=== PATIENT | male | born 1975 | race Two or more races ===

== ENCOUNTER → 2020-06-28 09:54 | Outpatient (BNVA) | payer OTHER, SELFPAY | PROVIDERS: PCP Internal Medicine; Visit Provider Internal Medicine Endocrinology, Diabetes & Metabolism | DX: E11.9 Type 2 diabetes mellitus without complications (principal); E78.00 Pure hypercholesterolemia, unspecified; E53.8 Deficiency of other specified B group vitamins; E55.9 Vitamin D deficiency, unspecified; Z87.891 Personal history of nicotine dependence; E66.9 Obesity, unspecified; Z79.4 Long term (current) use of insulin; Z71.3 Dietary counseling and surveillance | CPT/HCPCS: 82947; 99212 ==

== ENCOUNTER 2020-06-28 10:42 | Outpatient (REF) | payer OTHER, SELFPAY ==
[2020-06-28 14:25] LABS: Cholesterol 174 mg/dL; HDL Cholesterol 39 mg/dL; LDL Cholesterol Calculated 109 mg/dl; Triglycerides 131 mg/dL
[2020-06-28 14:48] LABS: Vitamin D 25-OH Total 29.4 ng/mL (>30)
[2020-06-29 12:01] LABS: LDL Cholesterol Direct 121 mg/dL (<100)
== END 2020-06-28 10:43 | disposition home or self-care (01) ==
LOC: HO.10HDL 10:42
PROVIDERS: Visit Provider Internal Medicine Endocrinology, Diabetes & Metabolism
DX: E11.9 Type 2 diabetes mellitus without complications (principal)
CPT/HCPCS: 80061; 82306; 83721

== ENCOUNTER → 2021-01-22 10:58 | Outpatient (BNVA) | payer OTHER, SELFPAY | PROVIDERS: PCP Internal Medicine; Visit Provider Internal Medicine Endocrinology, Diabetes & Metabolism | DX: E11.9 Type 2 diabetes mellitus without complications (principal); E78.00 Pure hypercholesterolemia, unspecified; E53.8 Deficiency of other specified B group vitamins; E55.9 Vitamin D deficiency, unspecified; E66.9 Obesity, unspecified | CPT/HCPCS: 82947; 99212 ==

== ENCOUNTER 2021-03-27 08:24 | Outpatient (REF) | payer OTHER, SELFPAY ==
[2021-03-27 09:41] LABS: MANUAL DIFF FLAG NO
[2021-03-27 09:49] LABS: Basophils Absolute Auto 0.1 X10*3/uL (0.0-0.2); Basophils Percent Auto 0.7 % (0-2); Eosinophils Absolute Auto 0.3 X10*3/uL (0.0-0.4); Eosinophils Percent Auto 3.8 % (0-4); Hematocrit 45.7 % (42-52); Hemoglobin 15.7 g/dl (14.0-18.0); Imm Gran Abs Auto 0.02 X10*3/uL (0.00-0.03); Imm Gran Pct Auto 0.3 % (0.0-0.4); Lymphocytes Absolute Auto 2.5 X10*3/uL (1.2-4.9); Lymphocytes Percent Auto 34.7 % (20-40); Mean Corpuscular HGB Conc 34.4 g/dl (31.0-36.0); Mean Corpuscular Hemoglobin 31.8 pg (27.0-33.0); Mean Corpuscular Volume 92.7 fL (80-98); Mean Platelet Volume 9.8 fL (9.4-12.4); Monocytes Absolute Auto 0.6 X10*3/uL (0.1-1.2); Monocytes Percent Auto 8.2 % (2-11); Neutrophils Absolute Auto 3.8 X10*3/uL (2.0-8.3); Neutrophils Percent Auto 52.3 % (45-73); Platelet Count 212 X10*3/uL (160-400); Red Blood Count 4.93 X10*6/uL (4.60-5.80); Red Cell Distribution Width 12.1 % (11.0-16.0); White Blood Count 7.2 X10*3/uL (4.8-10.8)
[2021-03-27 10:26] LABS: Creatinine Urine 173.73 mg/dL; Microalbum/Creatinine Ratio Ur 2.8 ug/mg cr
[2021-03-27 10:27] LABS: Alanine Aminotransferase 21 U/L (0-40); Albumin Level 4.3 g/dL (3.5-5.0); Alkaline Phosphatase 52 U/L (39-117); Anion Gap 14 (12-20); Aspartate Amino Transferase 18 U/L (5-37); Bilirubin Total 0.4 mg/dL (0.0-1.0); Blood Urea Nitrogen 16 mg/dL (9-16); Calcium 9.4 mg/dL (8.4-10.2); Carbon Dioxide 28 mmol/L (22-29); Chloride 107 mmol/L (96-108); Cholesterol 204 mg/dL; Estimated Glomerular Filt Rate > 60; Glucose Fasting 108 mg/dL (60-99); HDL Cholesterol 42 mg/dL; LDL Cholesterol Calculated 142 mg/dl; Potassium 4.7 mmol/L (3.3-5.1); Sodium 144 mmol/L (135-145); Total Protein 6.6 g/dL (6.5-8.0); Triglycerides 103 mg/dL
[2021-03-27 10:58] LABS: Folate 15.8 ng/mL (> or = 4.0); Vitamin B12 476 pg/mL (200-900)
[2021-04-01 13:06] LABS: Vitamin D 25-OH, D2 <4 ng/mL; Vitamin D 25-OH, D3 27 ng/mL; Vitamin D 25-OH, Total 27 ng/mL (30-100)
== END 2021-03-27 08:25 | disposition home or self-care (01) ==
LOC: HO.LAB 08:24
PROVIDERS: PCP Internal Medicine; Visit Provider Internal Medicine
DX: E55.9 Vitamin D deficiency, unspecified (principal); E11.9 Type 2 diabetes mellitus without complications; E53.8 Deficiency of other specified B group vitamins; E78.00 Pure hypercholesterolemia, unspecified
CPT/HCPCS: 36415; 80053; 80061; 82043; 82306; 82607; 82746; 85025

== ENCOUNTER 2021-05-25 09:53 | Outpatient (REF) | payer OTHER, SELFPAY ==
--- NOTE | ~2021-05-25 | XR_ITS ---
EXAMINATION: XR LUMBOSACRAL SPINE CLINICAL INFORMATION: Lower back pain COMPARISON: 08/27/2014 TECHNIQUE: Three views of the lumbosacral spine. FINDINGS: No fracture or subluxation. Vertebral body height and alignment maintained. Disc spaces are maintained. Small multilevel endplate osteophytes which are greatest at L2-L3. The sacroiliac joints are symmetric. The sacrum appears intact. Nonobstructive bowel gas pattern. XR/XR lumbar spine 2-3V IMPRESSION: Mild multilevel degenerative changes of the lumbar spine which have progressed from 2014.
== END 2021-05-25 09:54 | disposition home or self-care (01) ==
LOC: HO.XRAY 09:53
PROVIDERS: PCP Internal Medicine; Visit Provider Physician Assistant
DX: M54.50 Low back pain, unspecified (principal)
CPT/HCPCS: 72100

== ENCOUNTER 2021-11-09 08:22 | Outpatient (REF) | payer OTHER, SELFPAY ==
[2021-11-09 09:32] LABS: Alanine Aminotransferase 38 U/L (0-40); Albumin Level 4.4 g/dL (3.5-5.0); Alkaline Phosphatase 57 U/L (39-117); Anion Gap 12 (12-20); Aspartate Amino Transferase 25 U/L (5-37); Bilirubin Total 0.6 mg/dL (0.0-1.0); Blood Urea Nitrogen 13 mg/dL (9-16); Calcium 9.4 mg/dL (8.4-10.2); Carbon Dioxide 28 mmol/L (22-29); Chloride 102 mmol/L (96-108); Cholesterol 196 mg/dL; Estimated Glomerular Filt Rate > 60; Glucose Fasting 124 mg/dL (60-99); HDL Cholesterol 34 mg/dL; LDL Cholesterol Calculated 136 mg/dl; Potassium 4.4 mmol/L (3.3-5.1); Sodium 138 mmol/L (135-145); Total Protein 7.6 g/dL (6.5-8.0); Triglycerides 131 mg/dL
[2021-11-09 09:35] LABS: Creatinine Urine 188.18 mg/dL; Microalbum/Creatinine Ratio Ur 3.1 ug/mg cr
[2021-11-09 10:15] LABS: Vitamin B12 386 pg/mL (200-900)
[2021-11-15 12:18] LABS: Vitamin D 25-OH, D2 <4 ng/mL; Vitamin D 25-OH, D3 25 ng/mL; Vitamin D 25-OH, Total 25 ng/mL (30-100)
== END 2021-11-09 08:23 | disposition home or self-care (01) ==
LOC: HO.LAB 08:22
PROVIDERS: PCP Internal Medicine; Visit Provider Internal Medicine
DX: E11.9 Type 2 diabetes mellitus without complications (principal); E55.9 Vitamin D deficiency, unspecified; E53.8 Deficiency of other specified B group vitamins; E78.5 Hyperlipidemia, unspecified
CPT/HCPCS: 36415; 80053; 80061; 82043; 82306; 82607

== ENCOUNTER 2022-05-01 14:00 | Outpatient (RCR) | payer OTHER, SELFPAY ==
--- NOTE | 2022-06-11 09:02 | MHC.PT.DC ---
[facility] [place] Office [place] Office [place] Office [address] Angeline Cuevas [address] [phone] F: [phone] F: [phone] F: [phone] F: [phone] Physical Therapy Discharge Report Diagnosis: SCIATICA, RIGHT (KP) Date of Surgery: Date of Evaluation: 04/03/22 Date of Discharge: 06/11/22 Treatments to Date: 5 Cancellations to Date: 2 No Shows to Date: 1 Discharge Status: Discharge Summary: Persian cancelled/no showed for last three scheduled visits and is DCed per department policy. Electronically signed by: Marissa Pinedo PT, DPT Please sign and return to therapist. Thank you for your referral.
== END 2022-06-11 09:00 | disposition home or self-care (01) ==
LOC: HO.PT 14:00
PROVIDERS: PCP Internal Medicine; Visit Provider Internal Medicine
DX: M54.31 Sciatica, right side (principal)
CPT/HCPCS: 97110; 97140; 97161; 97530; 97535

== ENCOUNTER 2022-10-24 08:44 | Outpatient (REF) | payer OTHER, SELFPAY ==
[2022-10-24 09:32] LABS: Estimated Average Glucose 137 mg/dL; Hemoglobin A1c % 6.4 %
[2022-10-24 09:42] LABS: Alanine Aminotransferase 17 U/L (0-40); Albumin Level 4.2 g/dL (3.5-5.0); Alkaline Phosphatase 56 U/L (39-117); Anion Gap 11 (12-20); Aspartate Amino Transferase 18 U/L (5-37); Bilirubin Total 0.3 mg/dL (0.0-1.0); Blood Urea Nitrogen 15 mg/dL (9-16); Calcium 8.9 mg/dL (8.4-10.2); Carbon Dioxide 28 mmol/L (22-29); Chloride 104 mmol/L (96-108); Cholesterol 170 mg/dL; Estimated Glomerular Filt Rate > 60; Glucose Fasting 126 mg/dL (60-99); HDL Cholesterol 36 mg/dL; LDL Cholesterol Calculated 116 mg/dl; Potassium 4.2 mmol/L (3.3-5.1); Sodium 139 mmol/L (135-145); Total Protein 7.1 g/dL (6.5-8.0); Triglycerides 94 mg/dL
[2022-10-24 10:15] LABS: Folate 7.9 ng/mL (> or = 4.0); Vitamin B12 320 pg/mL (200-900); Vitamin D 25-OH Total 26.8 ng/mL (>30)
[2022-10-24 11:32] LABS: Creatinine Urine 111.21 mg/dL; Microalbumin Urine < 5.0 mg/L
== END 2022-10-24 08:45 | disposition home or self-care (01) ==
LOC: HO.LAB 08:44
PROVIDERS: Visit Provider Internal Medicine
DX: Z00.00 Encounter for general adult medical examination without abnormal findings (principal); E11.40 Type 2 diabetes mellitus with diabetic neuropathy, unspecified; E78.5 Hyperlipidemia, unspecified; E11.9 Type 2 diabetes mellitus without complications; E53.8 Deficiency of other specified B group vitamins; E55.9 Vitamin D deficiency, unspecified
CPT/HCPCS: 36415; 80053; 80061; 82043; 82306; 82607; 82746; 83036

== ENCOUNTER → 2022-11-05 13:25 | Outpatient (REF) | payer OTHER, SELFPAY ==
--- NOTE | 2022-11-05 13:28 | HM_ITS ---
* Total monitoring time 2 days. * Underlying rhythm is sinus. Average ventricular rate 92/Min. Range 69 to 150/Min. * Frequent PACs with a burden of 1.5%. Very brief runs noted. * Rare PVCs with minimal burden * No significant pauses or AV blocks. * Patient markers used 3 times, in association sinus rhythm, PACs, PVC. * Diary symptoms include palpitations, skipping, chest discomfort, pain and correlates with patient markers above. MTDD
== END ==
LOC: HO.CARD 13:25
PROVIDERS: PCP Internal Medicine; Visit Provider Internal Medicine
DX: R00.2 Palpitations (principal)
CPT/HCPCS: 93225

== ENCOUNTER → 2022-12-12 09:30 | Outpatient (BNVA) | payer OTHER, SELFPAY | PROVIDERS: PCP Internal Medicine; Visit Provider Nurse Practitioner Family | DX: Z12.11 Encounter for screening for malignant neoplasm of colon (principal); E11.9 Type 2 diabetes mellitus without complications; E66.9 Obesity, unspecified; E78.00 Pure hypercholesterolemia, unspecified; E55.9 Vitamin D deficiency, unspecified; Z68.35 Body mass index [BMI] 35.0-35.9, adult | CPT/HCPCS: 99202 ==

== ENCOUNTER 2023-11-28 11:57 | Outpatient (AMB) | payer OTHER, SELFPAY ==
[2023-11-28 12:00] VITALS: BP 108/72; PULSE 109; TEMP 36.8; O2SAT 99; BMI 34.4
--- NOTE | 2023-11-28 12:00 | MHC.OFFWIV ---
Intake Vital Signs 11/28/23 12:00 Height 5 ft 11 in Weight 246 lb 8 oz BMI 34.4 BP 108/72 Blood Pressure Location Lt brachial Position Sitting Pulse 109 H Pulse Source Pulse Oximeter Temp 98.3 F Temp Source Oral Pulse Oximetry (%) 99 Oxygen Delivery Method Room Air Intake Visit Reasons: EP Rash Intake Note: Pt presents to the office today for c/o a rash on his feet and lower abdomen that started last week. Pt states it is a little painful and itchy. Patient Tobacco Use Status: Never used Tobacco Allergies No Known Allergies [No Known Allergies*] Allergy (Verified 11/28/23 12:03) HPI HPI Comments History of Present Illness Details 48 y/o male patient who presents to walk in clinic with c/o Rash on his bilateral dorsal feet and under abdominal skin folds. Reports that rash started 2 weeks ago. Describes it as very itchy with mild pain. Denies any changes to his diet, cosmetic products, detergent of soap. [facility] Medical History B12 deficiency Depression with anxiety Diabetes mellitus Hypovitaminosis D Obesity (BMI 30-39.9) Physical exam Pure hypercholesterolemia Surgical History No pertinent past surgical history Family History Father Alzheimers disease Mental health disorder Mother Diabetes Social History Housing: Apartment Alcohol intake: current Alcohol intake frequency: holidays/special occasions only Alcohol type: beer Patient Tobacco Use Status: Never used Tobacco Tobacco use type: Cigarette e-Cigarette/Vaping Use: Never Used Second Hand Smoke Exposure: No service: No Current occupational status: disabled Review of Systems Const All systems reviewed & are unremarkable except as noted in HPI and below Physical Exam Vital Signs: Last Vital Signs Temp 98.3 F 11/28/23 12:00 Pulse 109 H 11/28/23 12:00 BP 108/72 11/28/23 12:00 Pulse Ox 99 11/28/23 12:00 Oxygen Delivery Method Room Air 11/28/23 12:00 BMI result Body Mass Index 34.4 Const General: comfortable and no acute distress Orientation/consciousness: patient oriented x3 Limitations: language barrier GI Abdomen image: 1. Patches of red, scaly, moist skin on feet and the abdominal skin folds. Skin Other: Patches of red, scaly, moist skin on feet and the abdominal skin folds. General skin exam: dry skin and erythema Rashes: rashes noted Neuro General: patient oriented x3, gait normal and moves all extremities Extrem Ankle/foot/toe images: 1. Patches of red, scaly, moist skin on feet and the abdominal skin folds. 2. Patches of red, scaly, moist skin on feet and the abdominal skin folds. Psych Speech and movement: Normal speech and movement present Assessment & Plan Assessment & Plan (1) Rash and nonspecific skin eruption: Code(s): R21 - Rash and other nonspecific skin eruption Plan: - Moisturize skin -Use the medication as directed - RTC if not better. Medications: New clotrimazole-betamethasone 1-0.05 % 1 appl topical BID 2 weeks 45 grams 0RF Rash R21 - Rash and other nonspecific skin eruption prednisone 50 mg PO DAILY 5 days 5 tabs 0RF Itching R21 - Rash and other nonspecific skin eruption Coding Level of Care Code Est Pt Level 3 (81330) Diagnoses Rash and nonspecific skin eruption R21 Time Spent (min) 15
== END 2023-11-28 12:28 | disposition home or self-care (01) ==
PROVIDERS: PCP Internal Medicine; Visit Provider Nurse Practitioner Family
DX: R21 Rash and other nonspecific skin eruption (principal)
CPT/HCPCS: 99213

== ENCOUNTER 2024-03-02 15:27 | Outpatient (AMB) | payer OTHER, SELFPAY ==
--- NOTE | 2024-03-02 15:33 | MHC.OFFWIV ---
Intake Vital Signs 03/02/24 15:35 Height 5 ft 11 in Weight 242 lb BMI 33.7 BP 112/78 Blood Pressure Location Lt brachial Position Sitting Pulse 99 Pulse Source Pulse Oximeter Temp 98.7 F Temp Source Oral Pulse Oximetry (%) 98 Oxygen Delivery Method Room Air Intake Visit Reasons: EP RT eye concern Intake Note: pt c/o RT eye foreign object. 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 1 week ago Patient Tobacco Use Status: Never used Tobacco Allergies No Known Allergies [No Known Allergies*] Allergy (Verified 03/02/24 15:34) Do you need a note to return to daycare/school/sports/work: No HPI EP RT eye concern HPI Details This note is constructed using voice recognition software. While every effort has been made to ensure accuracy, pig machine operator errors may have been included. The patient is a 49 year old male who presents to the clinic today with right-sided eye pain for one-week after having foreign body in his eye at work. He notes that he is having blurred vision, and pain on movement. He has not had this evaluated previously.. [facility] Medical History B12 deficiency Depression with anxiety Diabetes mellitus Hypovitaminosis D Obesity (BMI 30-39.9) Physical exam Pure hypercholesterolemia Surgical History No pertinent past surgical history Family History Father Alzheimers disease Mental health disorder Mother Diabetes Social History Housing: Apartment Alcohol intake: current Alcohol intake frequency: holidays/special occasions only Alcohol type: beer Patient Tobacco Use Status: Never used Tobacco Tobacco use type: Cigarette e-Cigarette/Vaping Use: Never Used Second Hand Smoke Exposure: No service: No Current occupational status: disabled Review of Systems Const All systems reviewed & are unremarkable except as noted in HPI and below Physical Exam Vital Signs: Last Vital Signs Temp 98.7 F 03/02/24 15:35 Pulse 99 03/02/24 15:35 BP 112/78 03/02/24 15:35 Pulse Ox 98 03/02/24 15:35 Oxygen Delivery Method Room Air 03/02/24 15:35 BMI result Body Mass Index 33.7 Const General: cooperative, healthy appearing, comfortable, no acute distress and alert Orientation/consciousness: patient oriented x3 Limitations: no limitations HEENT Head: Yes normal to inspection and Yes normocephalic Ears: hearing grossly normal bilaterally General nose exam: Normal external nose present Face and sinus: Yes normal facial exam and Yes sinuses nontender Mouth: Normal oral and palatal mucosa present and tongue normal Teeth and gingiva: dentition normal Throat: Yes posterior oropharynx normal Eyes Other: Erythema present to the right eye, painful extraocular movement. No obvious foreign body on exam. Neuro General: patient oriented x3 Psych Appearance: grossly normal Mental Status: mental status grossly normal Speech and movement: Normal speech and movement present Affect: normal affect Assessment & Plan Assessment & Plan (1) Pain, eye, right: Code(s): H57.11 - Ocular pain, right eye Plan: Given the foreign body was entered into I over one-week ago, I advised patient to be seen by Ophthalmology, especially in setting of blurred vision. He has agreed to be seen by Ophthalmology, and I have provided him with the phone number and address for Dr. Quezada. I have also sent a message to his primary care provider to facilitate referral if needed. Plan See above for full details and plan. Coding Level of Care Code Est Pt Level 3 (49207) Diagnoses Pain, eye, right H57.11
[2024-03-02 15:35] VITALS: BP 112/78; PULSE 99; TEMP 37.1; O2SAT 98; BMI 33.7
== END 2024-03-02 16:18 | disposition home or self-care (01) ==
PROVIDERS: PCP Internal Medicine; Visit Provider Registered Nurse
DX: H57.11 Ocular pain, right eye (principal)
CPT/HCPCS: 99213

== ENCOUNTER 2024-03-04 16:28 | Outpatient (AMB) | payer OTHER, SELFPAY ==
[2024-03-04 16:32] VITALS: BP 120/80; BMI 34.4
--- NOTE | 2024-03-04 16:32 | A.OFFPC_ITS ---
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 Required: No Accompanied by: Self / Same As Patient Allergies No Known Allergies [No Known Allergies*] Allergy (Verified 03/04/24 16:48) Medication List - Last Reconciled 03/04/24 by Louise Ledesma MD alcohol swabs 1 pad topical .3 times a day 90 days atorvastatin 40 mg PO BEDTIME 90 days blood sugar diagnostic As directed blood sugar diagnostic (FreeStyle Lite Strips) 3 times a day cholecalciferol (vitamin D3) (Vitamin D3) 50 mcg PO DAILY clotrimazole-betamethasone 1-0.05 % 1 appl topical BID 2 weeks cyanocobalamin (vitamin B-12) 100 mcg PO DAILY 90 days dulaglutide (Trulicity) 0.75 mg (0.5 mL) subcut QWEEK 90 days lancets 3 times a day lidocaine 5% 1 appl topical BEDTIME PRN 30 days lorazepam 1 mg PO TID metformin ER 500 mg PO BID paroxetine HCl 20 mg PO QAM quetiapine 100 mg PO BEDTIME Tobacco use date assessed: 03/04/24 Dental Screening Dental Screen Date: 03/04/24 Did you have a dental visit in the last 12 months?: Yes Did you have a dental problem in the last 6 months where you did not have access to dental care?: No Was dental information given to patient?: Patient has dentist HPI HPI Comments History of Present Illness Details This is a 49-year-old male with moderate recurrent major depression and diabetes mellitus type 2 that comes for his physical exam. Depression stable with medications and he follows with Psychiatry. A1c within goal. Last diabetic eye exam was less than a year ago. Has not had a colonoscopy and will be referred. [facility] Medical History Physical exam Obesity (BMI 30-39.9) Hypovitaminosis D B12 deficiency Depression with anxiety Pure hypercholesterolemia Diabetes mellitus Surgical History No pertinent past surgical history Family History Father Alzheimers disease Mental health disorder Mother Diabetes Social History Housing: Apartment Alcohol intake: current Alcohol intake frequency: holidays/special occasions only Alcohol type: beer Patient Tobacco Use Status: Never used Tobacco e-Cigarette/Vaping Use: Never Used Second Hand Smoke Exposure: No service: No Current occupational status: employed Current occupational exposures/hazards: No Cognitive needs: No Hearing needs: No Vision needs: No Questionnaire PHQ-9 Over the last 2 weeks, how often have you been bothered by any of the following problems? 1. Little interest or pleasure in doing things: not at all 2. Feeling down, depressed, or hopeless: several days 3. Trouble falling or staying asleep, or sleeping too much: several days 4. Feeling tired or having little energy: several days 5. Poor appetite or overeating: several days 6. Feeling bad about yourself - or that you are a failure or have let yourself or your family down: several days 7. Trouble concentrating on things, such as reading the newspaper or watching television: not at all 8. Moving or speaking so slowly that other people could have noticed. Or the opposite - being so fidgety or restless that you have been moving around a lot more than usual: not at all 9. Thoughts that you would be better off or of hurting yourself in some way: not at all Total score: 5 Depression Screening Interpretation: Positive Depression Screening Follow-up: Existing condition, In treatment, Community Mental Health Worker F/U and Follow- up Visit Requested Depression Screening Done: Yes 32497 - PHQ-9 Billing: Yes Source: Developed by Drs. Shashank Doe, Yady Paz, Sandeep Cartwright and colleagues, with an educational mary from [employer]. Thrive Questionnaire Date Thrive assessed: 03/04/24 I am a: Patient What is your living situation today?: I have a steady place to live Within the past 12 months, did the food you bought not last and you didn't have the money to get more?: Never true Within the past 12 months, did you worry whether your food would run out before you got money to buy more?: Never true Do you have trouble paying for medicines?: No Do you have trouble getting transportation to medical appointments?: No Do you have trouble paying your heating and electricity bill?: No Do you have trouble taking care of your child, family member or friend?: No Do you have trouble with day-to-day activities such as bathing, preparing meals, shopping, managing finances, etc.?: No Are you currently unemployed and looking for a job?: No Are you interested in more education?: No Please select the resources that you would like help with: None Currently or been in a relationship where the following occur: No concerns reported THRIVE Score: 0 AUDIT C Alcohol Use Questionnaire (AUDIT-C) 1. How often do you have a drink containing alcohol?: Monthly or less 2. How many drinks containing alcohol do you have on a typical day when you are drinking?: 1 or 2 3. How often do you have six or more drinks on one occasion?: Never Total Score: 1 Score Reviewed/Action Taken: No NAEL-7 AMB Questionnaire NAEL-7 Date NAEL - 7 assessed: 03/04/24 Feeling nervous, anxious, or on edge: 1 = Several days Not being able to stop or control worryin = Not at all Worrying too much about different things: 1 = Several days Trouble relaxin = Not at all Being so restless that it is hard to sit still: 0 = Not at all Becoming easily annoyed or irritable: 1 = Several days Feeling afraid as if something awful might happen: 0 = Not at all Total NAEL-7 score (0-4 normal; 5-9 mild; 10-14 moderate; 15-21 severe): 3 Source: Developed by Drs. Shashank Doe, Yady Paz, Sandeep Cartwright and colleagues, with an educational mary from [employer]. NAEL-7 Assessment Billing NAEL-7 Assessment Tool: NAEL-7 Assessment 58388 Review of Systems Const All systems reviewed & are unremarkable except as noted in HPI and below Card Denies chest pain at rest, Denies chest pain with activity, Denies edema, Denies irregular heart rhythm, Denies claudication, Denies dyspnea, Denies dyspnea on exertion, Denies orthopnea, Denies paroxysmal nocturnal dyspnea and Denies slow heart rate Resp Denies cough, Denies dyspnea and Denies dyspnea on exertion GI Denies abdominal pain, Denies change in bowel habits, Denies excessive flatus, Denies nausea and Denies vomiting Denies urinary hesitancy, Denies urinary incontinence and Denies urinary urgency Musc Denies atrophy, Denies deformity and Denies limited range of motion Physical exam (Primary Care) Vital Signs: Last Vital Signs BP 120/80 03/04/24 16:32 BMI result Body Mass Index 34.4 BMI Assessment/Plan discussion: High BMI High, discussed plan: lifestyle, weight reduction, dietary and physical activity Tobacco/Smoking Status: Tobacco use Status Tobacco use date assessed 03/04/24 03/04/24 16:43 Patient Tobacco Use Status Never used Tobacco 03/04/24 16:43 Tobacco use type 03/04/24 16:43 e-Cigarette/Vaping Use Never Used 03/04/24 16:43 PHQ-9: PHQ-9 Score PHQ-9: Total score 5 03/04/24 16:43 Depression Screening Interpretation: Positive Depression Screening Follow-up: Existing condition, In treatment, Community Mental Health Worker F/U and Follow- up Visit Requested Thrive Assessment: Date of Thrive Assessment Date Thrive assessed 03/04/24 03/04/24 16:43 Currently or been in a relationship where the following occur: No concerns reported HENOH Head: Yes normal to inspection, Yes normocephalic and Yes atraumatic Ears: external ears normal Eyes General: appearance normal, both eyes and all related structures Eyelids: Yes eyelids normal Conjunctivae: conjunctivae normal Neck Neck: Yes normal visual inspection and Yes supple Resp Effort & Inspection: normal respiratory effort Auscultation: clear to auscultation bilaterally Cardio Jugular venous distension: no JVD Rate: regular rate Rhythm: regular rhythm Heart sounds: S1 normal heart sound present and S2 normal heart sound present GI Inspection: Yes normal to inspection Palpation (GI): Soft to palpation and nontender Auscultation: normal bowel sounds Skin General skin exam: no rashes or lesions noted Neuro General: no focal motor deficits Extrem General: Yes full ROM Psych Appearance: grossly normal Results AMB Hemoglobin A1c AMB Hemoglobin A1c 5.9 % Last Edit by SEAN Ayala on 03/04/24 16:4 5 Results Reviewed Results Reviewed: Laboratory Last Values Hgb A1c (Clinic) 5.9 % (4.0-6.0) 03/04/24 16:32 Assessment and Plan Assessment & Plan (1) Physical exam: Code(s): Z00.00 - Encounter for general adult medical examination without abnormal findings Plan: Repeat in a year. (2) Moderate recurrent major depression: Code(s): F33.1 - Major depressive disorder, recurrent, moderate Plan: Continue paroxetine. Follow-up with psychiatry. (3) Diabetes mellitus: Code(s): E11.9 - Type 2 diabetes mellitus without complications Qualifiers: Diabetes mellitus type: type 2 Diabetes mellitus jail insulin use: without long term care social worker use Diabetes mellitus complication status: without complication Qualified Code(s): E11.9 - Type 2 diabetes mellitus without complications Plan: Continue metformin. A1c goal is equal or less than 7%. Orders: Orders Comprehensive Kennedy. Panel Fast Today E11.9 - Type 2 diabetes mellitus without complications AMB Hemoglobin A1c Today E11.9 - Type 2 diabetes mellitus without complications Lipid Panel Today E78.5 - Hyperlipidemia, unspecified Microalbumin, Random (w Creat) Today E11.9 - Type 2 diabetes mellitus without complications Vitamin D 25-OH Total Today E55.9 - Vitamin D deficiency, unspecified Vitamin B12 and Folate Today E53.8 - Deficiency of other specified B group vitamins Medications: Refilled blood sugar diagnostic (FreeStyle Lite Strips) 3 times a day 300 ea 2RF E11.9 - Type 2 diabetes mellitus without complications atorvastatin Dose increased to 40 mg 40 mg PO BEDTIME 90 days 90 tabs 1RF E78.00 - Pure hypercholesterolemia, unspecified cyanocobalamin (vitamin B-12) 100 mcg PO DAILY 90 days 90 tabs 1RF E53.8 - Deficiency of other specified B group vitamins cholecalciferol (vitamin D3) (Vitamin D3) 50 mcg PO DAILY 90 caps 1RF E78.00 - Pure hypercholesterolemia, unspecified metformin ER 500 mg PO BID 180 tabs 1RF E11.9 - Type 2 diabetes mellitus without complications dulaglutide (Trulicity) 0.75 mg (0.5 mL) subcut QWEEK 90 days 6.5 mL 1RF E11.9 - Type 2 diabetes mellitus without complications Coding Level of Care Code Est Pt Prev Care 40-64y(47680) Diagnoses Physical exam Z00.00 Moderate recurrent major depression F33.1 Type 2 diabetes mellitus without complication, without long-term current use of insulin E11.9 Diabetes mellitus type: type 2 Diabetes mellitus jail insulin use: 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 Diabetes mellitus complication status: without complication Additional Codes NAEL-7 Assessment Billing - NAEL-7 Assessment Tool: NAEL-7 Assessment [id number] ([id number]) Time Spent (min) 30
== END 2024-03-04 17:25 | disposition home or self-care (01) ==
PROVIDERS: PCP Internal Medicine; Visit Provider Internal Medicine
DX: Z00.00 Encounter for general adult medical examination without abnormal findings (principal); F33.1 Major depressive disorder, recurrent, moderate; E11.9 Type 2 diabetes mellitus without complications
CPT/HCPCS: 83036; 99396

== ENCOUNTER 2024-03-05 08:28 | Outpatient (REF) | payer OTHER, SELFPAY ==
[2024-03-05 09:56] LABS: Alanine Aminotransferase 15 U/L (0-40); Albumin Level 4.1 g/dL (3.5-5.0); Alkaline Phosphatase 53 U/L (39-117); Anion Gap 8 (12-20); Aspartate Amino Transferase 18 U/L (5-37); Bilirubin Total 0.4 mg/dL (0.0-1.0); Blood Urea Nitrogen 10 mg/dL (9-16); Calcium 9.1 mg/dL (8.4-10.2); Carbon Dioxide 30 mmol/L (22-29); Chloride 105 mmol/L (96-108); Cholesterol 167 mg/dL (<200); Estimated Glomerular Filt Rate > 60; Glucose Fasting 110 mg/dL (60-99); HDL Cholesterol 39 mg/dL (>40); LDL Cholesterol Calculated 106 mg/dL (<100); Potassium 4.4 mmol/L (3.3-5.1); Sodium 139 mmol/L (135-145); Total Protein 7.2 g/dL (6.5-8.0); Triglycerides 114 mg/dL (<150)
[2024-03-05 10:12] LABS: Vitamin D 25-OH Total 34.2 ng/mL (>30)
[2024-03-05 10:59] LABS: Folate 10.6 ng/mL (> or = 4.0); Vitamin B12 375 pg/mL (200-900)
[2024-03-05 11:59] LABS: Creatinine Urine 103.68 mg/dL; Microalbumin Urine < 5.0 mg/L
== END 2024-03-05 08:29 | disposition home or self-care (01) ==
LOC: HO.LAB 08:28
PROVIDERS: PCP Internal Medicine; Visit Provider Internal Medicine
DX: E11.9 Type 2 diabetes mellitus without complications (principal); E78.5 Hyperlipidemia, unspecified; E53.8 Deficiency of other specified B group vitamins; E55.9 Vitamin D deficiency, unspecified
CPT/HCPCS: 36415; 80053; 80061; 82043; 82306; 82570; 82607; 82746

== ENCOUNTER 2024-07-04 09:50 | Emergency (ER) | payer OTHER, SELFPAY ==
--- NOTE | ~2024-07-04 | XR_ITS ---
EXAMINATION: XR CHEST CLINICAL INFORMATION: Coughing. Pneumonia? COMPARISON: Chest x-ray on 04/11/2020 TECHNIQUE: Frontal view of the chest was obtained. FINDINGS: No significant abnormality is noted involving the heart, lungs, mediastinum, bony thorax or soft tissues. XR/XR chest 1V IMPRESSION: Unremarkable examination. Electronically signed by: Brandee Douglass MD 07/04/2024 10:55 AM [facility]
[2024-07-04 09:54] VITALS: BP 112/79; PULSE 115; RESP 20; TEMP 36.9; O2SAT 98; BMI 30.7
--- NOTE | 2024-07-04 10:49 | ED_ITS ---
HPI - General Adult General Chief complaint: Upper Respiratory Symptoms Stated complaint: flu symptoms Time Seen by Provider: 07/04/24 10:27 Source: patient Mode of arrival: ambulatory Limitations: no limitations History of Present Illness ED Provider: Yosvany Galvin PA-C HPI narrative: 49 yold male with pmh of Diabetes, sciatica, and depression presents to the ED for chills, bodyaches, congestion, and non porductive cough. Patient states having symptoms since yesterday. Patient states daughter also having similar symptoms. Patient denies any chest pain or shortness of breath. Related Data Home Medications ?Medication ?Instructions ?Recorded ?Confirmed blood sugar diagnostic #10 ea 05/22/20 03/04/24 lorazepam 1 mg tablet 1 mg PO TID 05/22/20 03/04/24 paroxetine HCl 20 mg tablet 20 mg PO QAM 05/22/20 03/04/24 quetiapine 100 mg tablet 100 mg PO BEDTIME 05/22/20 03/04/24 Previous Rx's ?Medication ?Instructions ?Recorded alcohol swabs 1 pad topical .3 times a day 90 06/28/20 days #300 ea lancets 28 gauge #300 ea 01/22/21 lidocaine 5 % topical ointment 1 appl topical BEDTIME PRN pain 30 02/28/22 days #30 grams clotrimazole-betamethasone 1 1 appl topical BID Rash 2 weeks 11/28/23 %-0.05 % topical cream #45 grams atorvastatin 40 mg tablet 40 mg PO BEDTIME 90 days #90 tabs 03/04/24 cholecalciferol (vitamin D3) 50 50 mcg PO DAILY #90 caps 03/04/24 mcg (2,000 unit) capsule (Vitamin D3) cyanocobalamin (vitamin B-12) 100 100 mcg PO DAILY 90 days #90 tabs 03/04/24 mcg tablet dulaglutide 0.75 mg/0.5 mL 0.75 mg (0.5 mL) subcut QWEEK 90 03/04/24 subcutaneous pen injector days #6.5 mL (Trulicity) metformin 500 mg tablet,extended 500 mg PO BID #180 tabs 03/04/24 release 24 hr blood sugar diagnostic (FreeStyle #300 ea 05/20/24 Lite Strips) Allergies Allergy/AdvReac Type Severity Reaction Status Date / Time No Known Allergies Allergy Verified 07/04/24 09:54 [No Known Allergies*] Review of Systems Review of Systems: Chills, body aches, nonproductive cough Yes all other systems are reviewed and are negative [facility] Past Medical History Medical History Physical exam Obesity (BMI 30-39.9) Hypovitaminosis D B12 deficiency Depression with anxiety Pure hypercholesterolemia Diabetes mellitus Surgical History No pertinent past surgical history Family History Family History Father Alzheimers disease Mental health disorder Mother Diabetes Social History Social History Housing: Apartment Alcohol intake: current Alcohol intake frequency: holidays/special occasions only Alcohol type: beer Patient Tobacco Use Status: Never used Tobacco e-Cigarette/Vaping Use: Never Used Second Hand Smoke Exposure: No Advance Directives: No Advance Directives Information Provided: Yes service: No Current occupational status: employed Current occupational exposures/hazards: No Cognitive needs: No Hearing needs: No Vision needs: No Physical Exam ED Vital Signs: Vital Signs - 24 hr 07/04/24 09:54 07/04/24 11:14 07/04/24 12:52 Temperature 98.4 F 98.3 F 98.3 F Pulse Rate 115 H 100 100 Respiratory Rate 20 16 16 Blood Pressure 112/79 122/87 122/87 Pulse Oximetry 98 97 97 Oxygen Delivery Method Room Air Room Air Room Air BMI result Body Mass Index 30.7 Const General: cooperative, healthy appearing, comfortable, no acute distress, well developed, alert, awake and Physically active Orientation/consciousness: oriented to time and patient oriented x3 HENMT Head: Yes normal to inspection, Yes No palpable skull fracture present and Yes normocephalic Ears: hearing grossly normal bilaterally, external ears normal, TM's normal bilaterally, TM normal on the right, TM normal on the left, EAC's normal, mastoids normal and no periauricular adenopathy Throat: Yes posterior oropharynx normal, Yes tonsils normal and Yes uvula midline Eyes General: appearance normal, both eyes and all related structures Neck Neck: Yes normal visual inspection, Yes full ROM, Yes no lymphadenopathy, Yes no meningeal signs, Yes trachea midline, Yes supple, No anterior neck swelling and No tender Chest Chest palpation & inspection: normal inspection of the chest and normal palpation of entire chest wall Resp Effort & Inspection: normal respiratory effort and able to speak in complete sentences Auscultation: clear to auscultation bilaterally Cardio Jugular venous distension: no JVD Heart sounds: S1 normal heart sound present and S2 normal heart sound present GI Inspection: Yes normal to inspection Palpation (GI): Soft to palpation, not firm, nontender, no guarding and not rigid General: No CVA tenderness and Yes no CVA tenderness Back/Spine/Pelvis Back: no CVA tenderness, No CVA tenderness and No back tenderness Skin General skin exam: no rashes or lesions noted, elasticity normal and turgor normal Neuro General: oriented to time, patient oriented x3, gait normal, tone normal, moves all extremities, Normal light touch and pain sensation, no meningeal signs, no focal motor deficits, CN's II-XI intact bilaterally and normal sensation to monofilament Extrem General: Yes normal to inspection, Yes full ROM and Yes capillary refill normal Psych Appearance: grossly normal, well kempt and not disheveled Medical Decision Making Medical Decision Making MDM Narrative: 49-year-old male presents ED with URI symptoms SARs strep ordered. Chest x-ray ordered. 12:34pm: Chest x-ray negative pneumonia. SARs strep negative. Patient is safe for discharge. Not suspecting myocardial infarction, CHF, pericarditis, myocarditis, PE, hypoxia, respiratory failure, dissection, any other life- threatening etiology. Patient explained worrisome signs and informed return to the ED immediately. Differential Diagnosis Differential Diagnoses: The differential diagnosis associated with the presentation includes (COVID, RSV, influenza, strep, pneumonia) Admission/Observation Consideration of admission/observation: Escalation of care including admission/observation considered Lab Data MDM Lab Attestation statement: I reviewed the patient's lab results. Labs: Lab Results 07/04/24 07/04/24 Range/Units 10:17 10:38 Influenza Type A (PCR) NEGATIVE (Negative) Influenza Type B (PCR) NEGATIVE (Negative) RSV RNA Qual (PCR) NEGATIVE (Negative) SARS-CoV-2 RNA (RT-PCR) NEGATIVE (Negative) S. pyogenes GrpA ALFRED Negative (Negative) Independent Interpretation I performed an independent interpretation of an: Plain X-Ray Radiology Impression Discussion of test interpretation with radiology: I have reviewed the radiologist's reading. Independent Historian Clinical information obtained from an independent historian. History obtained from or confirmed by: Other (Patient) External Record Review External record reviewed: Other (Prior visits) Discharge Plan Discharge Clinical Impression: URI (upper respiratory infection) Patient Disposition: Home, Self-Care Instructions: Upper Respiratory Infection (ED) Additional Instructions: Recommend follow-up with the primary care provider. Chest x-ray came back negative for pneumonia. COVID, influenza, RSV, and strep test were negative. Return to the ED immediately for any chest pain, shortness of breath, coughing up blood, weakness, dizziness, or any other concerning symptoms. Prescriptions: No Action (DME) FreeStyle Lite Strips Strip See Rx Instructions .ROUTE .MEDSUPPLY Qty: 300 2RF Rx Instructions: 3 times a day paroxetine HCl 20 mg tablet 20 mg PO QAM quetiapine 100 mg tablet 100 mg PO BEDTIME lorazepam 1 mg tablet 1 mg PO TID (DME) FreeStyle Lite Strips Strip See Rx Instructions .ROUTE .MEDSUPPLY Qty: 10 Rx Instructions: As directed lidocaine 5 % ointment 1 appl topical BEDTIME PRN (Reason: pain) 30 Days Qty: 30 0RF atorvastatin 40 mg tablet 40 mg PO BEDTIME 90 Days Qty: 90 1RF Rx Instructions: Dose increased to 40 mg cholecalciferol (vitamin D3) [Vitamin D3] 50 mcg (2,000 unit) capsule 50 mcg PO DAILY Qty: 90 1RF cyanocobalamin (vitamin B-12) 100 mcg tablet 100 mcg PO DAILY 90 Days Qty: 90 1RF metformin 500 mg tablet extended release 24 hr 500 mg PO BID Qty: 180 1RF Trulicity 0.75 mg/0.5 mL pen injector 0.75 mg subcut QWEEK 90 Days Qty: 6.5 1RF clotrimazole-betamethasone 1-0.05 % cream 1 appl topical BID 14 Days Qty: 45 0RF (DME) lancets 28 gauge misc See Rx Instructions topical TID Qty: 300 1RF Rx Instructions: 3 times a day alcohol swabs Pads, Medicated 1 pad topical .3 times a day 90 Days Qty: 300 2RF Stand Alone Forms: Work/School Release Interventions: ED Discharge Assessment Last Done: 07/04/24 12:52 Discharge Date/Time: 07/04/24 12:52 Print Language: Maltese
[2024-07-04 10:52] LABS: IDNOW Serial# 6674DD1D; Strep A Nucleic Acid Negative (Negative)
[2024-07-04 11:14] VITALS: BP 122/87; PULSE 100; RESP 16; TEMP 36.8; O2SAT 97
[2024-07-04 12:07] LABS: Influenza A PCR NEGATIVE (Negative); Influenza B PCR NEGATIVE (Negative); Resp Syncy Virus RNA Qual PCR NEGATIVE (Negative); SARS COV2 PCR INHOUSE NEGATIVE (Negative)
[2024-07-04 12:52] VITALS: BP 122/87; PULSE 100; RESP 16; TEMP 36.8; O2SAT 97
== END 2024-07-04 12:52 | disposition home or self-care (01) ==
PROVIDERS: Physician Assistant; Emergency Provider Emergency Medicine; PCP Internal Medicine
DX: J06.9 Acute upper respiratory infection, unspecified (principal); M79.10 Myalgia, unspecified site; R05.9 Cough, unspecified; Z03.818 Encounter for observation for suspected exposure to other biological agents ruled out; Z79.899 Other long term (current) drug therapy
CPT/HCPCS: 0241U; 71045; 87651; 99283

== ENCOUNTER 2024-08-02 16:26 | Outpatient (AMB) | payer OTHER, SELFPAY ==
--- NOTE | 2024-08-02 16:39 | MHC.PC.OV ---
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 His Hemoglobin A1c is currently at 6.3%, indicating well-controlled blood glucose levels. He is currently on Trulicity once a week, Metformin twice daily, and Vitamin B12 supplement. Additionally, the patient previously experienced symptoms indicative of an upper respiratory infection. A plaque reveal tested negatively for complications but confirmed the presence of an infection. There is no record of associated fever or chest pain noted at this visit. His blood pressure has remained stable at 126/80. Changes in body weight are also observed; weight has increased from 240 to 249 pounds. The patient does not report any new allergic reactions to medications. The patient's psychiatric history includes depression with anxiety, for which he is currently prescribed Lorazepam, Paroxetine, and Quetiapine as monitored by his psychiatrist. [facility] Medical History (Updated 07/05/24 @ 00:00 by Whitney Rockwell) Physical exam Obesity (BMI 30-39.9) Hypovitaminosis D B12 deficiency Depression with anxiety Pure hypercholesterolemia Diabetes mellitus Surgical History No pertinent past surgical history Family History Father Alzheimers disease Mental health disorder Mother Diabetes Social History Housing: Apartment Alcohol intake: current Alcohol intake frequency: holidays/special occasions only Alcohol type: beer Patient Tobacco Use Status: Never used Tobacco e-Cigarette/Vaping Use: Never Used Second Hand Smoke Exposure: No service: No Current occupational status: employed Current occupational exposures/hazards: No Cognitive needs: No Hearing needs: No Vision needs: No Questionnaire Thrive Questionnaire Date Thrive assessed: 03/04/24 NAEL-7 AMB Questionnaire NAEL-7 Date NAEL - 7 assessed: 03/04/24 Source: Developed by Drs. Shashank Doe, Yady Paz, Sandeep Cartwright and colleagues, with an educational mary from [employer]. Review of Systems Const All systems reviewed & are unremarkable except as noted in HPI and below Card Denies chest pain at rest, Denies chest pain with activity, Denies edema, Denies irregular heart rhythm, Denies claudication, Denies dyspnea, Denies dyspnea on exertion, Denies orthopnea, Denies paroxysmal nocturnal dyspnea and Denies slow heart rate Resp Denies cough, Denies dyspnea and Denies dyspnea on exertion GI Denies abdominal pain, Denies change in bowel habits, Denies excessive flatus, Denies nausea and Denies vomiting Denies urinary hesitancy, Denies urinary incontinence and Denies urinary urgency Physical exam (Primary Care) Vital Signs: Last Vital Signs BP 126/80 08/02/24 16:40 BMI result Body Mass Index 34.7 BMI Assessment/Plan discussion: High BMI High, discussed plan: lifestyle, weight reduction, dietary and physical activity Tobacco/Smoking Status: Tobacco use Status Tobacco use date assessed 03/04/24 08/02/24 16:39 Patient Tobacco Use Status Never used Tobacco 08/02/24 16:39 Tobacco use type 03/04/24 17:23 e-Cigarette/Vaping Use Never Used 08/02/24 16:39 Thrive Assessment: Date of Thrive Assessment Date Thrive assessed 03/04/24 08/02/24 16:39 Resp Effort & Inspection: normal respiratory effort Auscultation: clear to auscultation bilaterally Cardio Jugular venous distension: no JVD Rate: regular rate Rhythm: regular rhythm Heart sounds: S1 normal heart sound present and S2 normal heart sound present Extrem General: Yes full ROM Office Procedures Flu Questionnaire Does the patient have a severe egg allergy?: No Results AMB Hemoglobin A1c AMB Hemoglobin A1c 6.3 % Last Edit by SEAN Ayala on 08/02/24 16:52 Immunizations Fluarix Triv [id number] (PF) 45 mcg (15 mcg x 3)/0.5 mL IM syringe Performing Provider: Louise Ledesma MD [facility] Documented (not given) by: SEAN Ayala on 08/02/24 16:40 Reason Not Given: Patient Refused Results Reviewed Results Reviewed: Laboratory Last Values Hgb A1c (Clinic) 6.3 % (4.0-6.0) H 08/02/24 16:39 Coding Level of Care Code Est Pt Level 4 (38155) Complex EM visit Add On G2211 Diagnoses Moderate recurrent major depression F33.1 NAEL (generalized anxiety disorder) F41.1 Type 2 diabetes mellitus without complication, without long-term current use of insulin E11.9 Diabetes mellitus type: type 2 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: 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 Diabetes mellitus complication status: without complication Pure hypercholesterolemia E78.00 Obesity (BMI 30-39.9) E66.9 Time Spent (min) 23 Assessment & Plan Assessment & Plan (1) Moderate recurrent major depression: Code(s): F33.1 - Major depressive disorder, recurrent, moderate Category: Medical (2) NAEL (generalized anxiety disorder): Code(s): F41.1 - Generalized anxiety disorder Category: Medical (3) Diabetes mellitus: Code(s): E11.9 - Type 2 diabetes mellitus without complications Category: Medical Qualifiers: Diabetes mellitus type: type 2 Diabetes mellitus jail insulin use: without 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 - Monitor and manage blood pressure due to diagnosed hypertension; continue monitoring regularly. - Maintain weight control strategies to address recent weight gain to prevent further complications with diabetes and hypertension. - Continue current psychiatric medications under psychiatric supervision. - Encourage follow-up for comprehensive care after the new year. - Discuss and monitor potential signs of reoccurrence or exacerbation of upper respiratory infection. Patient was informed and verbally consented to the use of an ambient scribe for clinic note documentation during this visit. During the consultation, I discussed the positive control of the patient's diabetes with a current A1c of 6.3%. We acknowledged the slight increase in weight, and I emphasized the importance of diet and exercise in conjunction with the medication for diabetes and hypertension management. I reassured the patient regarding the normal plaque test result and the resolved upper respiratory infection with no lingering fever, chest pain, or breathlessness. For depression and anxiety, I underlined the benefit of ongoing psychiatric support and agreed to continue current medication regimens. I recommended routine follow-up and reassessment after the new year to evaluate the effectiveness of the current management approach, ensuring comprehensive care. Orders: Orders AMB Hemoglobin A1c 08/02/24 E11.9 - Type 2 diabetes mellitus without complications Vitamin B12 and Folate 08/02/24 E53.8 - Deficiency of other specified B group vitamins Lipid Panel 08/02/24 E78.5 - Hyperlipidemia, unspecified Microalbumin, Random (w Creat) 08/02/24 R80.9 - Proteinuria, unspecified Comprehensive [place]. Panel Fast 08/02/24 E11.9 - Type 2 diabetes mellitus without complications Influenza [id number] Immunization 08/02/24 Z23 - Encounter for immunization Vitamin D 25-OH Total 08/02/24 E55.9 - Vitamin D deficiency, unspecified Patient Instructions: - Continue taking diabetes medication as prescribed. - Monitor blood pressure regularly. - Follow the diet and incorporate physical activity into the daily routine to manage weight. - Adhere to psychiatric medications and continue follow-ups with psychiatrist. - A follow-up appointment to be scheduled after the new year.
[2024-08-02 16:40] VITALS: BP 126/80; BMI 34.7
== END 2024-08-02 17:41 | disposition home or self-care (01) ==
PROVIDERS: PCP Internal Medicine; Visit Provider Internal Medicine
DX: E11.9 Type 2 diabetes mellitus without complications (principal); F33.1 Major depressive disorder, recurrent, moderate; E66.9 Obesity, unspecified; Z68.34 Body mass index [BMI] 34.0-34.9, adult; F41.1 Generalized anxiety disorder; E78.00 Pure hypercholesterolemia, unspecified

== ENCOUNTER 2024-08-12 07:59 | Outpatient (REF) | payer OTHER, SELFPAY ==
[2024-08-12 09:38] LABS: Alanine Aminotransferase 21 U/L (0-40); Albumin Level 4.1 g/dL (3.5-5.0); Alkaline Phosphatase 52 U/L (39-117); Anion Gap 11 (12-20); Aspartate Amino Transferase 26 U/L (5-37); Bilirubin Total 0.6 mg/dL (0.0-1.0); Blood Urea Nitrogen 13 mg/dL (9-16); Calcium 8.8 mg/dL (8.4-10.2); Carbon Dioxide 27 mmol/L (22-29); Chloride 106 mmol/L (96-108); Cholesterol 177 mg/dL (<200); Estimated Glomerular Filt Rate > 60; Glucose Fasting 112 mg/dL (60-99); HDL Cholesterol 36 mg/dL (>40); LDL Cholesterol Calculated 118 mg/dL (<100); Potassium 3.8 mmol/L (3.3-5.1); Sodium 140 mmol/L (135-145); Total Protein 7.1 g/dL (6.5-8.0); Triglycerides 119 mg/dL (<150)
[2024-08-12 09:44] LABS: Vitamin D 25-OH Total 29.4 ng/mL (>30)
[2024-08-12 10:02] LABS: Folate 16.3 ng/mL (> or = 4.0); Vitamin B12 414 pg/mL (200-900)
[2024-08-12 10:50] LABS: Creatinine Urine 140.81 mg/dL; Microalbumin Urine < 5.0 mg/L
== END 2024-08-12 08:00 | disposition home or self-care (01) ==
LOC: HO.LAB 07:59
PROVIDERS: PCP Internal Medicine; Visit Provider Internal Medicine
DX: E78.5 Hyperlipidemia, unspecified (principal); R80.9 Proteinuria, unspecified; E11.9 Type 2 diabetes mellitus without complications; E53.8 Deficiency of other specified B group vitamins; E55.9 Vitamin D deficiency, unspecified
CPT/HCPCS: 36415; 80053; 80061; 82043; 82306; 82570; 82607; 82746

== ENCOUNTER 2025-01-06 09:19 | Outpatient (REF) | payer OTHER, SELFPAY ==
--- NOTE | ~2025-01-06 | XR_ITS ---
EXAMINATION: XR ELBOW, RIGHT CLINICAL INFORMATION: M77.8 - Other enthesopathies, not elsewhere classified COMPARISON: None available. TECHNIQUE: AP, lateral, and oblique views of the right elbow. FINDINGS: There is no joint effusion. Joint spaces are preserved. There are no enthesophytes or osteophytes. There are no fractures. XR/XR elbow RT min 3V IMPRESSION: Unremarkable right elbow Electronically signed by: Smith Galo MD 01/06/2025 10:30 AM EDT
== END 2025-01-06 09:20 | disposition home or self-care (01) ==
LOC: HO.HMGCX 09:19
PROVIDERS: PCP Internal Medicine; Visit Provider Nurse Practitioner Family
DX: M77.8 Other enthesopathies, not elsewhere classified (principal)
CPT/HCPCS: 73080; 99212

== ENCOUNTER 2025-01-06 09:19 | Outpatient (AMB) | payer OTHER, SELFPAY ==
[2025-01-06 09:27] VITALS: BP 116/86; PULSE 100; TEMP 36.9; O2SAT 97; BMI 33.7
--- NOTE | 2025-01-06 09:27 | AM.OFFWIN_ITS ---
Intake Vital Signs 3 01/06/25 09:27 Height 5 ft 11 in Weight 242 lb BMI 33.7 BP 116/86 Blood Pressure Location Lt brachial Position Sitting Pulse 100 Pulse Source Pulse Oximeter Temp 98.5 F Temp Source Oral Pulse Oximetry (%) 97 Oxygen Delivery Method Room Air Intake Visit Reasons: EP-entire rt arm pain Intake Note: Pt presents to the office today for c/o right arm pain x2-3 months. Pt denies any injury to his arm. Patient Tobacco Use Status: Never used Tobacco Allergies No Known Allergies [No Known Allergies*] Allergy (Verified 01/06/25 09:30) Medication List - Last Reconciled 01/06/25 by Diana Brandon NP alcohol swabs 1 pad topical .3 times a day 90 days atorvastatin 40 mg PO BEDTIME 90 days blood sugar diagnostic As directed blood sugar diagnostic (FreeStyle Lite Strips) 3 times a day cholecalciferol (vitamin D3) (Vitamin D3) 50 mcg PO DAILY cyanocobalamin (vitamin B-12) 100 mcg PO DAILY 90 days dulaglutide (Trulicity) 0.75 mg (0.5 mL) subcut QWEEK 90 days lancets 3 times a day lorazepam 1 mg PO TID metformin ER 500 mg PO BID paroxetine HCl 20 mg PO QAM quetiapine 100 mg PO BEDTIME HPI HPI Comments 2 History of Present Illness0 Details 49 y/o Male patient who presents to the walk in clinic with c/o Right Arm pain for 2-3 months now. Reports sharp pain that starts at the Right elbow, radiating upper Arm and down to hand. Reports spasm and tingling pain. 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 Denies Injury or trauma. [facility] Medical History (Updated 01/06/25 @ 09:55 by Diana Brandon NP) Right elbow tendonitis Physical exam Obesity (BMI 30-39.9) Hypovitaminosis D B12 deficiency Depression with anxiety Pure hypercholesterolemia Diabetes mellitus Surgical History No pertinent past surgical history Family History Father Alzheimers disease Mental health disorder Mother Diabetes Social History Housing: Apartment Alcohol intake: current Alcohol intake frequency: holidays/special occasions only Alcohol type: beer Patient Tobacco Use Status: Never used Tobacco e-Cigarette/Vaping Use: Never Used Second Hand Smoke Exposure: No service: No Current occupational status: employed Current occupational exposures/hazards: No Cognitive needs: No Hearing needs: No Vision needs: No Review of Systems Const All systems reviewed & are unremarkable except as noted in HPI and below Physical Exam Vital Signs: Last Vital Signs Temp 98.5 F 01/06/25 09:27 Pulse 100 01/06/25 09:27 BP 116/86 01/06/25 09:27 Pulse Ox 97 01/06/25 09:27 Oxygen Delivery Method Room Air 01/06/25 09:27 BMI result Body Mass Index 33.7 Const General: no acute distress Nutritional Appearance: overweight Orientation/consciousness: patient oriented x3 Limitations: language barrier Neuro General: patient oriented x3, gait normal and moves all extremities Motor exam (neuro): 5/5 motor strength present throughout Extrem Right upper extremity: normal to inspection, full ROM and elbow/forearm Details: normal to inspection, tenderness Location: of the olecranon, of the lateral epicondyle and of the medial epicondyle and normal ROM (with Pain); no ecchymosis, no crepitus and no deformity Shoulder/upper arm images: 2 1. TTP, Normal ROM with pain, no swelling no deformity. Psych Speech and movement: Normal speech and movement present Assessment & Plan Assessment & Plan (1) Right elbow tendonitis: Code(s): M77.8 - Other enthesopathies, not elsewhere classified Plan: Ordered Xray Elbow to r/o Fx Ordered Flexeril and Diclofenac Ice/Hot Rest joint. Orders: Orders 2 XR elbow RT min 3V Today M77.8 - Other enthesopathies, not elsewhere classified Medications: New 2 cyclobenzaprine 10 mg PO BEDTIME 14 tabs 0RF M77.8 - Other enthesopathies, not elsewhere classified diclofenac potassium 50 mg PO BID 14 tabs 0RF 7 days M77.8 - Other enthesopathies, not elsewhere classified Discontinued 2 lidocaine 5% Discontinued Reason: Patient Completed Course 1 appl topical BEDTIME 30 days PRN 30 grams 0RF pain M54.31 - Sciatica, right side clotrimazole-betamethasone 1-0.05 % Discontinued Reason: Patient Completed Course 1 appl topical BID 2 weeks 45 grams 0RF Rash R21 - Rash and other nonspecific skin eruption Coding Level of Care Code Est Pt Level 4 (50152) Diagnoses Right elbow tendonitis M77.8 Time Spent (min) 20
== END 2025-01-06 10:03 | disposition home or self-care (01) ==
PROVIDERS: PCP Internal Medicine; Visit Provider Nurse Practitioner Family
DX: M77.8 Other enthesopathies, not elsewhere classified (principal)

== ENCOUNTER → 2025-01-06 10:00 | Outpatient (BNV) | payer OTHER, SELFPAY | PROVIDERS: PCP Internal Medicine; Visit Provider Radiology Diagnostic Radiology | DX: M77.8 Other enthesopathies, not elsewhere classified (principal) | CPT/HCPCS: 73080 ==

== ENCOUNTER 2025-03-12 10:15 | Emergency (ER) | payer OTHER, SELFPAY ==
--- NOTE | ~2025-03-12 | XR_ITS ---
CLINICAL HISTORY: pain 3 view left elbow Comparison: None provided Findings: Bones intact. No dislocations. No significant loss of joint space, osteophytes, or erosions. No joint effusion. No radiopaque foreign body. IMPRESSION: 1. No acute findings. This document has been electronically signed by: Delta Powell MD on 03/12/2025 15:12:13
--- NOTE | ~2025-03-12 | XR_ITS ---
CLINICAL HISTORY: pain 3 view right elbow Comparison: CR/SR - XR ELBOW 3 VIEWS RIGHT - 01/06/25 10:11 EDT Findings: No acute fractures or dislocations. No significant arthritic change or erosions. No joint effusion. No radiopaque foreign body. IMPRESSION: 1. No acute findings. This document has been electronically signed by: Delta Powell MD on 03/12/2025 15:12:01
[2025-03-12 10:30] VITALS: BP 119/83; PULSE 84; RESP 18; TEMP 36.6; O2SAT 98; BMI 32.3
--- NOTE | 2025-03-12 15:45 | ED_ITS ---
HPI - Extremity Problem General Chief complaint: Extremity Problem Stated complaint: both elbows swollen Time Seen by Provider: 03/12/25 13:28 Source: patient Mode of arrival: ambulatory Limitations: no limitations History of Present Illness ED Provider: Aarti Fry PA-C HPI Narrative: This is a 50-year-old male, with a history of diabetes in hyperlipidemia, who presents emergency department with concerns of bilateral elbow pain for 5-6 months. He denies any known injury or trauma. 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 He was seen at an urgent care where he had x-rays performed on 1 of his elbows which was unremarkable. He has been taking anti-inflammatories without any relief. He has not followed up with the crisis intervention specialist. He has been using a compression band on his arms which has not given him any relief. No other compl aints or concerns at this time. MD Complaint: extremity pain Onset (ago): day(s) Pain Consistency: constant Location: left, right and upper extremity Quality: aching Radiation: none Relieving factors: nothing Exacerbating factors: nothing Associated symptoms: denies other symptoms Related Data Home Medications ?Medication ?Instructions ?Recorded ?Confirmed blood sugar diagnostic #10 ea 05/22/20 01/06/25 lorazepam 1 mg tablet 1 mg PO TID 05/22/20 5 paroxetine HCl 20 mg tablet 20 mg PO QAM 05/22/2012/26 quetiapine 100 mg tablet 100 mg PO BEDTIME 05/22/20 0 01/06/25 Previous Rx's ?Medication ?Instructions ?Recorded alcohol swabs 1 pad topical .3 times a day 90 06/28/20 days #300 ea lancets 28 gauge #300 ea 01/22/21 cholecalciferol (vitamin D3) 50 50 mcg PO DAILY #90 ca ps 03/04/24 mcg (2,000 unit) capsule (Vitamin D3) cyanocobalamin (vitamin B-12) 100 100 mcg PO DAILY 90 days #90 tabs 03/04/24 mcg tablet blood sugar diagnostic (FreeStyle #300 ea 05/20/24 Lite Strips) atorvastatin 40 mg tablet 40 mg PO BEDTIME 90 days #90 tabs 10/01/24 metformin 500 mg tablet,extended 500 mg PO BID #180 ta bs 12/03/24 release 24 hr cyclobenzaprine 10 mg tablet 10 mg PO BEDTIME #14 tabs 01/06/25 diclofenac potassium 50 mg tablet 50 mg PO BID 7 days #14 tabs 01/06/25 dulaglutide 0.75 mg/0.5 mL 0.75 mg (0.5 mL) subcut QWE EK 90 01/28/25 subcutaneous pen injector days #6.5 mL (Trulicity) acetaminophen 500 mg tablet 500 mg PO Q6H PRN pain #30 tabs 03/12/25 (Tylenol Extra Strength) ibuprofen 600 mg tablet 600 mg PO Q6H PRN pain #30 t abs 03/12/25 Allergies Allergy/AdvReac Type Severity Reaction Status Date / Time No Known Allergies (No Known Allergy Verified 03/12/25 10:34 Allergies*) Review of Systems Review of Systems: Yes all other systems are reviewed and are negative Constitutional: Constitutional: Reports as per [facility] Past Medical History Medical History (Updated 03/12/25 @ 15:43 by TESSA Li) Right elbow tendonitis Physical exam Obesity (BMI 30-39.9) Hypovitaminosis D B12 deficiency Depression with anxiety Pure hypercholesterolemia Diabetes mellitus Surgical History No pertinent past surgical history Family History Family History Father Alzheimers disease Mental health disorder Mother Diabetes Social History Social History Housing: Apartment Alcohol intake: current Alcohol intake frequency: holidays/special occasions only Alcohol type: beer Patient Tobacco Use Status: Never used Tobacco e-Cigarette/Vaping Use: Never Used Second Hand Smoke Exposure: No Advance Directives: No Advance Directives Information Provided: Yes service: No Current occupational status: employed Current occupational exposures/hazards: No Cognitive needs: No Hearing needs: No Vision needs: No Physical Exam Vital Signs: Vital Signs: Last Vital Signs Temp 98 F 03/12/25 15:52 Pulse 84 03/12/25 15:52 Resp 18 03/12/25 15:52 BP 119/83 03/12/25 15:52 Pulse Ox 98 03/12/25 15:52 O2 Del Method Room Air 03/12/25 15:52 BMI result Body Mass Index 32.3 Const: General: cooperative, comfortable and no acute distress Orientation/consciousness: patient oriented x3 Limitations: no limitations HEENT: Head: Yes normal to inspection, Yes normocephalic and Yes atraumatic Ears: hearing grossly normal bilaterally General nose exam: Normal external nose present Face and sinus: Yes normal facial exam Mouth: Normal oral and palatal mucosa present, oropharynx normal and moist mucous membranes Throat: Yes posterior oropharynx normal Eyes: General: appearance normal, both eyes and all related structures Eyelids: Yes eyelids normal Conjunctivae: conjunctivae normal Sclerae: sclerae normal Pupils: Equal, round and reactive pupils present EOM: EOMs intact bilaterally Neck: Neck: Yes normal visual inspection, Yes full ROM and Yes no lymphadenopathy Lymphatic: no lymphadenopathy noted Chest: Chest palpation & inspection: normal inspection of the chest Resp: Effort & Inspection: normal respiratory effort and able to speak in complete sentences Auscultation: clear to auscultation bilaterally, no crackles, no rales, no rhonchi and no wheezes Cardio: Rate: regular rate Rhythm: regular rhythm Heart sounds: S1 normal heart sound present and S2 normal heart sound present GI: Inspection: Yes normal to inspection Skin: General skin exam: no rashes or lesions noted Trauma: no lacerations or abrasions Wounds: no wounds Neuro: General: patient oriented x3 and moves all extremities Cranial nerves: Yes Equal, round and reactive pupils present Extrem: Other: Bilateral elbows with no obvious bony deformity or swelling. Patient has point tenderness palpation along the medial and lateral epicondyles bilaterally distal sensation and circulation intact. Strong radial pulse. Full ROM. General: Yes normal to inspection Right upper extremity: normal to inspection Left upper extremity: normal to inspection Right lower extremity: normal to inspection Left lower extremity: normal to inspection Medical Decision Making Medical Decision Making MDM Narrative: This is a 50-year-old male who presents emergency department with complaints of bilateral elbow pain for the last several months. Performs repetitious movements at work. Patient has tenderness palpation along the bilateral medial and lateral epicondyles. X-rays were obtained revealing no acute findings. Discussed with patient that he may be experiencing lateral and medial epicondylitis, which is caused by his repetitious movements. Advised to rest, ice, avoid performing repetitious movements and expressed the importance of following up with orthopedics. He was given strict return precautions. Patient stable for discharge. Differential Diagnosis Differential Diagnoses: The differential diagnosis associated with the presentation includes Medial epicondylitis, lateral epicondylitis, strain, osteoarthritis, fracture Radiology Impression Discussion of test interpretation with radiology: I have reviewed the radiolog ist's reading. Radiologist Impression: Findings: No acute fractures or dislocations. No significant arthritic change or erosions. No joint effusion. No radiopaque foreign body. IMPRESSION: 1. No acute findings. This document has been electronically signed by: Delta Powell MD on 03/12/2025 15:12:01 Dictated By: Delta Powell MD Findings: Bones intact. No dislocations. No significant loss of joint space, osteophytes, or erosions. No joint effusion. No radiopaque foreign body. IMPRESSION: 1. No acute findings. This document has been electronically signed by: Delta Powell MD on 03/12/2025 15:12:13 Dictated By: Delta Powell MD Discharge Plan Discharge Clinical Impression: Pain, elbow, Tendinopathy of left elbow, Tendinopathy of right elbow Patient Disposition: Home, Self-Care Instructions: Arm Pain (ED) Additional Instructions: You were seen in the emergency department due to bilateral elbow pain. You likely have elbow tendinopathy which is also known as tennis and golf elbow. Rest and ice your elbows. Gentle stretching and exercise and can help. You need to follow-up with the crisis intervention specialist, call on Friday to make an appointment. If any new or worsening symptoms occur including but not limited to chest pain or shortness of breath, please seek emergent care. Prescriptions: New ibuprofen 600 mg tablet 600 mg PO Q6H PRN (Reason: pain) Qty: 30 0RF acetaminophen [Tylenol Extra Strength] 500 mg tablet 500 mg PO Q6H PRN (Reason: pain) Qty: 30 0RF No Action (DME) FreeStyle Lite Strips Strip See Rx Instructions .ROUTE .MEDSUPPLY Qty: 300 2RF Rx Instructions: 3 times a day atorvastatin 40 mg tablet 40 mg PO BEDTIME 90 Days Qty: 90 1RF Rx Instructions: Dose increased to 40 mg metformin 500 mg tablet extended release 24 hr 500 mg PO BID Qty: 180 1RF Trulicity 0.75 mg/0.5 mL pen injector 0.75 mg subcut QWEEK 90 Days Qty: 6.5 1RF paroxetine HCl 20 mg tablet 20 mg PO QAM quetiapine 100 mg tablet 100 mg PO BEDTIME lorazepam 1 mg tablet 1 mg PO TID (DME) FreeStyle Lite Strips Strip See Rx Instructions .ROUTE .MEDSUPPLY Qty: 10 Rx Instructions: As directed cholecalciferol (vitamin D3) [Vitamin D3] 50 mcg (2,000 unit) capsule 50 mcg PO DAILY Qty: 90 1RF cyanocobalamin (vitamin B-12) 100 mcg tablet 100 mcg PO DAILY 90 Days Qty: 90 1RF (DME) lancets 28 gauge misc See Rx Instructions topical TID Qty: 300 1RF Rx Instructions: 3 times a day alcohol swabs Pads, Medicated 1 pad topical .3 times a day 90 Days Qty: 300 2RF cyclobenzaprine 10 mg tablet 10 mg PO BEDTIME Qty: 14 0RF diclofenac potassium 50 mg tablet 50 mg PO BID 7 Days Qty: 14 0RF Referrals: [facility] [place] [facility] [Provider Group] Stand Alone Forms: Work/School Release Interventions: ED Discharge Assessment Last Done: 03/12/25 15:52 Discharge Date/Time: 03/12/25 15:53 Print Language: Albanian
[2025-03-12 15:52] VITALS: BP 119/83; PULSE 84; RESP 18; TEMP 36.6; O2SAT 98
== END 2025-03-12 15:53 | disposition home or self-care (01) ==
PROVIDERS: Emergency Provider Emergency Medicine Emergency Medical Services; PCP Internal Medicine
DX: Z04.2 Encounter for examination and observation following work accident (principal); M77.12 Lateral epicondylitis, left elbow; M79.602 Pain in left arm; M77.11 Lateral epicondylitis, right elbow; M79.601 Pain in right arm
CPT/HCPCS: 73080; 99282; 99283

== ENCOUNTER → 2025-03-12 13:39 | Outpatient (BNV) | payer OTHER, SELFPAY | PROVIDERS: Emergency Provider Emergency Medicine Emergency Medical Services; PCP Internal Medicine; Visit Provider Radiology Diagnostic Radiology | DX: M25.522 Pain in left elbow (principal); M25.521 Pain in right elbow | CPT/HCPCS: 73080 ==

== ENCOUNTER 2025-03-24 15:17 | Outpatient (AMB) | payer OTHER, SELFPAY ==
[2025-03-24 16:26] VITALS: BP 110/66; PULSE 91; O2SAT 97; BMI 33.7
--- NOTE | 2025-03-24 16:26 | A.OFFPC_ITS ---
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 Required: No Accompanied by: Self / Same As Patient Allergies No Known Allergies (No Known Allergies*) Allergy (Verified 03/24/25 16:36) Medication List - Last Reconciled 03/24/25 by Louise Ledesma MD acetaminophen (Tylenol Extra Strength) 500 mg PO Q6H PRN alcohol swabs 1 pad topical .3 times a day 90 days atorvastatin 40 mg PO BEDTIME 90 days blood sugar diagnostic As directed blood sugar diagnostic (FreeStyle Lite Strips) 3 times a day blood-glucose meter (FreeStyle Lite Meter kit) As directed cholecalciferol (vitamin D3) (Vitamin D3) 50 mcg PO DAILY cyanocobalamin (vitamin B-12) 100 mcg PO DAILY 90 days cyclobenzaprine 10 mg PO BEDTIME diclofenac potassium 50 mg PO BID 7 days dulaglutide (Trulicity) 0.75 mg (0.5 mL) subcut QWEEK 90 days ibuprofen 600 mg PO Q6H PRN lancets 3 times a day lorazepam 1 mg PO TID metformin ER 500 mg PO BID paroxetine HCl 20 mg PO QAM quetiapine 100 mg PO BEDTIME Tobacco use date assessed: 03/04/24 Dental Screening Dental Screen Date: 03/24/25 Did you have a dental visit in the last 12 months?: Yes Did you have a dental problem in the last 6 months where you did not have access to dental care?: No Was dental information given to patient?: Patient has dentist HPI HPI Comments History of Present Illness Details The patient is a 50-year-old male presenting for a physical examination and management of chronic conditions. The patient has a history of Diabetes Mellitus, with a recent hemoglobin A1c of 5.6, indicating well-controlled blood glucose levels. Previously, the A1c was 6.3, showing improvement over time. The patient also reports a history of depression, with a PHQ-9 score of 8 indicating mild depression. He is currently under psychiatric care and is prescribed paroxetine and lorazepam for anxiety. The patient experiences hyperlipidemia and is on atorvastatin for cholesterol management. He also takes vitamin B12, flexeril, diclofenac, Trulicity, ibuprofen as needed, and metformin. The patient reports pain in both elbows, with imaging showing no abnormalities. He also experiences a trigger finger in the right hand, which causes discomfort. Preventative care measures discussed include the need for tetanus and influenza vaccinations, which the patient plans to receive at a later date. [facility] Medical History (Updated 03/24/25 @ 16:45 by Louise Ledesma MD) Right elbow tendonitis Physical exam Obesity (BMI 30-39.9) Hypovitaminosis D B12 deficiency Depression with anxiety Pure hypercholesterolemia Diabetes mellitus Surgical History No pertinent past surgical history Family History Father Alzheimers disease Mental health disorder Mother Diabetes Social History Housing: Apartment Alcohol intake: current Alcohol intake frequency: holidays/special occasions only Alcohol type: beer Patient Tobacco Use Status: Never used Tobacco e-Cigarette/Vaping Use: Never Used Second Hand Smoke Exposure: No service: No Current occupational status: employed Current occupational exposures/hazards: No Cognitive needs: No Hearing needs: No Vision needs: No Questionnaire PHQ-9 Over the last 2 weeks, how often have you been bothered by any of the following problems? 1. Little interest or pleasure in doing things: several days 2. Feeling down, depressed, or hopeless: several days 3. Trouble falling or staying asleep, or sleeping too much: nearly every day 4. Feeling tired or having little energy: not at all 5. Poor appetite or overeating: several days 6. Feeling bad about yourself - or that you are a failure or have let yourself or your family down: several days 7. Trouble concentrating on things, such as reading the newspaper or watching television: several days 8. Moving or speaking so slowly that other people could have noticed. Or the opposite - being so fidgety or restless that you have been moving around a lot more than usual: not at all 9. Thoughts that you would be better off or of hurting yourself in some way: not at all Total score: 8 Depression Screening Interpretation: Positive Depression Screening Follow-up: Existing condition, In treatment, Community Mental Health Worker F/U and Follow- up Visit Requested Depression Screening Done: Yes 94921 - PHQ-9 Billing: Yes Source: Developed by Drs. Shashank Doe, Yady Paz, Sandeep Cartwright and colleagues, with an educational mary from [employer]. Thrive Questionnaire Date Thrive assessed: 03/24/25 I am a: Patient What is your living situation today?: I have a steady place to live Within the past 12 months, did the food you bought not last and you didn't have the money to get more?: I choose not to answer this question Within the past 12 months, did you worry whether your food would run out before you got money to buy more?: I choose not to answer this question Do you have trouble paying for medicines?: I choose not to answer this question Do you have trouble getting transportation to medical appointments?: I choose not to answer this question Do you have trouble paying your heating and electricity bill?: I choose not to answer this question Do you have trouble taking care of your child, family member or friend?: I choose not to answer this question Do you have trouble with day-to-day activities such as bathing, preparing meals, shopping, managing finances, etc.?: I choose not to answer this question Are you currently unemployed and looking for a job?: I choose not to answer this question Are you interested in more education?: I choose not to answer this question Please select the resources that you would like help with: None Currently or been in a relationship where the following occur: I choose not to answer THRIVE Score: 0 AUDIT C Alcohol Use Questionnaire (AUDIT-C) 1. How often do you have a drink containing alcohol?: Monthly or less 2. How many drinks containing alcohol do you have on a typical day when you are drinking?: 1 or 2 3. How often do you have six or more drinks on one occasion?: Less than monthly Total Score: 2 Score Reviewed/Action Taken: No NAEL-7 AMB Questionnaire NAEL-7 Date NAEL - 7 assessed: 03/24/25 Feeling nervous, anxious, or on edge: 3 = Nearly every day Not being able to stop or control worryin = More than half the days Worrying too much about different things: 2 = More than half the days Trouble relaxin = More than half the days Being so restless that it is hard to sit still: 2 = More than half the days Becoming easily annoyed or irritable: 2 = More than half the days Feeling afraid as if something awful might happen: 2 = More than half the days Total NAEL-7 score (0-4 normal; 5-9 mild; 10-14 moderate; 15-21 severe): 15 Source: Developed by Drs. Shashank Doe, Yady Paz, Sandeep Cartwright and colleagues, with an educational mary from [employer]. NAEL-7 Assessment Billing NAEL-7 Assessment Tool: NAEL-7 Assessment 68360 Review of Systems Const All systems reviewed & are unremarkable except as noted in HPI and below Card Denies chest pain at rest, Denies chest pain with activity, Denies edema, Denies irregular heart rhythm, Denies claudication, Denies dyspnea, Denies dyspnea on exertion, Denies orthopnea, Denies paroxysmal nocturnal dyspnea and Denies slow heart rate Resp Denies cough, Denies dyspnea and Denies dyspnea on exertion GI Denies abdominal pain, Denies change in bowel habits, Denies excessive flatus, Denies nausea and Denies vomiting Skin/Breast Denies bleeding lesions, Denies changing lesions and Denies rash Neuro Denies behavioral changes and Denies lack of coordination Psych Denies behavioral changes Physical exam (Primary Care) Vital Signs: Last Vital Signs Pulse 91 03/24/25 16:26 BP 110/66 03/24/25 16:26 Pulse Ox 97 03/24/25 16:26 BMI result Body Mass Index 33.7 BMI Assessment/Plan discussion: High BMI High, discussed plan: lifestyle, weight reduction, dietary and physical activity Tobacco/Smoking Status: Tobacco use Status Tobacco use date assessed 03/04/24 03/24/25 16:33 Patient Tobacco Use Status Never used Tobacco 03/24/25 16:33 Tobacco use type 03/04/24 17:23 e-Cigarette/Vaping Use Never Used 03/24/25 16:33 PHQ-9: PHQ-9 Score PHQ-9: Total score 8 03/24/25 16:43 Depression Screening Interpretation: Positive Depression Screening Follow-up: Existing condition, In treatment, Community Mental Health Worker F/U and Follow- up Visit Requested Thrive Assessment: Date of Thrive Assessment Date Thrive assessed 03/24/25 03/24/25 16:33 Currently or been in a relationship where the following occur: I choose not to answer [facility] Head: Yes normal to inspection, Yes normocephalic and Yes atraumatic Ears: external ears normal Eyes General: appearance normal, both eyes and all related structures Eyelids: Yes eyelids normal Conjunctivae: conjunctivae normal Neck Neck: Yes normal visual inspection and Yes supple Resp Effort & Inspection: normal respiratory effort Auscultation: clear to auscultation bilaterally Cardio Jugular venous distension: no JVD Rate: regular rate Rhythm: regular rhythm Heart sounds: S1 normal heart sound present and S2 normal heart sound present GI Inspection: Yes normal to inspection Palpation (GI): Soft to palpation and nontender Auscultation: normal bowel sounds Skin General skin exam: no rashes or lesions noted Neuro General: no focal motor deficits Extrem General: Yes full ROM Psych Appearance: grossly normal Results AMB Hemoglobin A1c AMB Hemoglobin A1c 5.6 % Last Edit by SEAN Luke on 03/24/25 16 :38 Results Reviewed Results Reviewed: Laboratory Last Values Hgb A1c (Clinic) 5.6 % (4.0-6.0) 03/24/25 16:29 Coding Level of Care Code Est Pt Level 4 (42270) New Pt Prev Care 40-64y(14888) Diagnoses Physical exam Z00.00 Type 2 diabetes mellitus without complication, without long-term current use of insulin E11.9 Diabetes mellitus type: type 2 Diabetes mellitus termite treater insulin use: without termite treater use Diabetes mellitus complication status: without complication Moderate recurrent major depression F33.1 Right elbow pain M25.521 Left elbow pain M25.522 Lumbar spine pain M54.50 Additional Codes NAEL-7 Assessment Billing - NAEL-7 Assessment Tool: NAEL-7 Assessment 49604 ([id number]) PHQ-9 - 69751 - PHQ-9 Billing: Yes ([id number]) Time Spent (min) 35 Assessment & Plan Assessment & Plan (1) Physical exam: Code(s): Z00.00 - Encounter for general adult medical examination without abnormal findings Category: Medical (2) Diabetes mellitus: Code(s): E11.9 - Type 2 diabetes mellitus without complications Category: Medical Qualifiers: Diabetes mellitus type: type 2 Diabetes mellitus jail insulin use: without termite treater use Diabetes mellitus complication status: without complication Qualified Code(s): E11.9 - Type 2 diabetes mellitus without complications (3) Moderate recurrent major depression: Code(s): F33.1 - Major depressive disorder, recurrent, moderate Category: Medical (4) Right elbow pain: Code(s): M25.521 - Pain in right elbow Category: Medical (5) Left elbow pain: Code(s): M25.522 - Pain in left elbow Category: Medical (6) Lumbar spine pain: Code(s): M54.50 - Low back pain, unspecified Category: Medical Plan The patient will continue with current diabetes management, as the hemoglobin A1c indicates well-controlled blood glucose levels. Regular monitoring and adherence to prescribed medications, including metformin and Trulicity, are advised. For depression and anxiety, the patient will maintain psychiatric follow-up and continue medications such as paroxetine and lorazepam. A PHQ-9 score of 8 suggests mild depression, and ongoing mental health support is recommended. The patient should continue atorvastatin for hyperlipidemia management. Pain management for elbow pain and trigger finger includes considering orthopedic consultation and possible interventions if symptoms persist. Preventative care measures include scheduling tetanus and influenza vaccinations, with the influenza vaccine planned for May. The patient is encouraged to receive these vaccinations at a convenient location. Patient was informed and verbally consented to the use of an ambient scribe for clinic note documentation during this visit. Orders: Orders Lipid Panel 03/24/25 E78.5 - Hyperlipidemia, unspecified Vitamin D 25-OH Total 03/24/25 E55.9 - Vitamin D deficiency, unspecified AMB Hemoglobin A1c 03/24/25 E11.9 - Type 2 diabetes mellitus without complications Microalbumin, Random (w Creat) 03/24/25 R80.9 - Proteinuria, unspecified Comprehensive [place]. Panel Fast 03/24/25 E11.9 - Type 2 diabetes mellitus without complications PT Evaluation and Treatment 03/24/25 M54.50 - Low back pain, unspecified Referrals Orthopedics Referral M25.521 - Pain in right elbow, M25.522 - Pain in left elbow, M65.331 - Trigger finger, right middle finger Open Access Screening Colonoscopy Referral Z12.12 - Encounter for screening for malignant neoplasm of rectum Medications: Changed From lancets 3 times a day 300 ea 1RF E11.9 - Type 2 diabetes mellitus without complications To lancets once a day 100 ea 1RF E11.9 - Type 2 diabetes mellitus without complications
== END 2025-03-24 16:51 | disposition home or self-care (01) ==
LOC: HO.HMCH 15:17
PROVIDERS: PCP Internal Medicine; Visit Provider Internal Medicine
DX: E11.9 Type 2 diabetes mellitus without complications (principal)

== ENCOUNTER → 2025-03-24 15:17 | Outpatient (BNVA) | payer OTHER, SELFPAY | PROVIDERS: PCP Internal Medicine; Visit Provider Internal Medicine | DX: Z00.00 Encounter for general adult medical examination without abnormal findings (principal); E11.9 Type 2 diabetes mellitus without complications; E78.5 Hyperlipidemia, unspecified; M25.522 Pain in left elbow; M25.521 Pain in right elbow; F33.1 Major depressive disorder, recurrent, moderate; M54.50 Low back pain, unspecified; E55.9 Vitamin D deficiency, unspecified; R80.9 Proteinuria, unspecified | CPT/HCPCS: 83036; 96127; 99212; 99396 ==

== ENCOUNTER 2025-04-26 14:35 | Outpatient (AMB) | payer OTHER, SELFPAY ==
--- NOTE | 2025-04-26 15:17 | MHC.OFFVIS ---
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 States his finger is frequently locking and catching for the past 4-5 months with no improvement. States he is not having any pain. Denies injury. No other treatments. He states history of bilateral tennis elbow and unsure if this has anything to do with locking and catching in his finger. He has an upcoming appointment here to discuss his elbow condition. 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 He complains of locking & catching of his middle finger for ~4-5 months now. He says this does not necessarily hurt. He denies any prior treatment options He has a Hx of bilateral lateral epicondylitis, and says he has an appointment on 05/12/25 with TESSA Roberts for this. He is a Diabetic, his most recent HgA1c was 5.6% on 03/24/25. 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 [facility] Medical History Right elbow tendonitis Physical exam Obesity (BMI 30-39.9) Hypovitaminosis D B12 deficiency Depression with anxiety Pure hypercholesterolemia Diabetes mellitus Surgical History No pertinent past surgical history Family History Father Alzheimers disease Mental health disorder Mother Diabetes Social History (Updated 04/26/25 @ 15:32 by SEAN Meehan) Housing: Apartment Alcohol intake: current Alcohol intake frequency: holidays/special occasions only Alcohol type: beer Patient Tobacco Use Status: Never used Tobacco e-Cigarette/Vaping Use: Never Used Second Hand Smoke Exposure: No service: No Current occupational status: employed 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, 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 Current occupational exposures/hazards: No Cognitive needs: No Hearing needs: No Vision needs: No Review of Systems Const All systems reviewed & are unremarkable except as noted in HPI and below Physical Exam Vital Signs: BMI result Body Mass Index 33.6 Const General: cooperative, healthy appearing and no acute distress Orientation/consciousness: patient oriented x3 HEENT Head: Yes normocephalic and Yes atraumatic Eyes EOM: EOMs intact bilaterally Resp Effort & Inspection: normal respiratory effort and able to speak in complete sentences Cardio Jugular venous distension: no JVD Skin General skin exam: turgor normal Rashes: no rashes Neuro General: patient oriented x3 Extrem Other: Evaluation of Right Upper Extremity: The patient is alert, oriented, and in no acute distress Neuro: Median, Ulnar, Radial nerves motor and sensory intact and sensation is normal to the tips of all digits Vascular: Cap refill brisk ROM: He can make a fist and extend all his digits Visible & Palpable locking & catching of the middle finger Tender over the middle finger a1 mayda Skin: No lacerations or abrasions. General: No Ecchymosis. No Erythema or evidence of infection. Psych Appearance: grossly normal Affect: normal affect Attitude: cooperative Assessment & Plan Assessment & Plan (1) Trigger finger, right middle finger: Code(s): M65.331 - Trigger finger, right middle finger Category: Medical (2) Diabetes mellitus: Code(s): E11.9 - Type 2 diabetes mellitus without complications Category: Medical Qualifiers: Diabetes mellitus complication status: without complication Diabetes mellitus custodial insulin use: without watermelon inspector use Diabetes mellitus type: type 2 Qualified Code(s): E11.9 - Type 2 diabetes mellitus without complications Plan Assessment & Plan: 1. Right middle finger trigger finger I educated him about this condition I discussed operative and non-operative treatment options The patient would like to proceed with surgery The risks and benefits of operative treatment were discussed with the patient and the patient wishes to proceed with surgery. These risks include, but are not limited to risk of damage to blood vessels, nerves, tendons, infection, recurrence, incomplete relief of preoperative symptoms, persistent pain, possible need for further surgery and the risks associated with regional blocks and anesthesia. The plan is to take the patient to the operating room sometime in the next few weeks for the following procedures: 1. Right middle finger trigger release, under local All of the preoperative paperwork including the consent was reviewed today. All the patient's questions were answered. The patient understands that they will be contacted by our program scheduler soon to schedule this procedure He denies blood thinners, asthma, heart, lung, kidney issues His HgA1c was 5.6% on 03/24/25. Scribed for Celi Frazier MD by John Tellez, medical illustrator, on 04/26/25 at 3:55 PM, EST. Coding Level of Care Code New Pt Level 4 (44427) Diagnoses Trigger finger, right middle finger M65.331 Type 2 diabetes mellitus without complication, without long-term current use of insulin E11.9 Diabetes mellitus complication status: without complication Diabetes mellitus custodial insulin use: without watermelon inspector use Diabetes mellitus type: type 2
[2025-04-26 15:30] VITALS: BMI 33.6
== END 2025-04-27 14:13 | disposition home or self-care (01) ==
LOC: HO.HOS 14:36
PROVIDERS: PCP Internal Medicine; Visit Provider Orthopaedic Surgery
DX: M65.331 Trigger finger, right middle finger (principal); E11.9 Type 2 diabetes mellitus without complications
CPT/HCPCS: 99204

== ENCOUNTER → 2025-04-26 14:35 | Outpatient (BNVA) | payer OTHER, SELFPAY | PROVIDERS: PCP Internal Medicine; Visit Provider Orthopaedic Surgery | DX: M65.331 Trigger finger, right middle finger (principal); E11.9 Type 2 diabetes mellitus without complications | CPT/HCPCS: 99202 ==

== ENCOUNTER 2025-05-12 14:42 | Outpatient (AMB) | payer OTHER, SELFPAY ==
--- NOTE | 2025-05-12 15:13 | A.OFFVIS_ITS ---
Intake Visit Reasons: New prob- Bilateral elbow pain Intake Note: Japanese is 50 year old 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 male who presents today for a evaluation for his bilateral elbow pain. Patient reports ongoing pain for about 6 months. He was seen at the [facility] in [facility] and he was prescribed cyclobenzaprine and diclofenac sodium for the pain which has given him no relief. He states that often times he has to clean the floors with a scrubber as well as a Pallet [employer] at work. With cleaning it typically has a repetitious movement with both of his hands on the Pallet Elliot. He states that his pain is worse when he is performing the repetitive motions. 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 Monahan is a 50 year old 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 male who presents today for a evaluation for his bilateral elbow pain. Patient reports ongoing pain for about 6 months. He was seen at the walk in center and he was prescribed cyclobenzaprine and diclofenac sodium for the pain which has given him no relief. He states that often times he has to clean the floors with a scrubber as well as a Pallet Ell[employer] at work. With cleaning it typically has a repetitious movement with both of his hands on the Pallet Elliot. He states that his pain is worse when he is performing the repetitive motions. 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 [facility] Medical History Right elbow tendonitis Physical exam Obesity (BMI 30-39.9) Hypovitaminosis D B12 deficiency Depression with anxiety Pure hypercholesterolemia Diabetes mellitus Surgical History No pertinent past surgical history Family History Father Alzheimers disease Mental health disorder Mother Diabetes Social History Housing: Apartment Alcohol intake: current Alcohol intake frequency: holidays/special occasions only Alcohol type: beer Patient Tobacco Use Status: Never used Tobacco e-Cigarette/Vaping Use: Never Used Second Hand Smoke Exposure: No service: No Current occupational status: employed Current occupation: [employer], 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 Current occupational exposures/hazards: No Cognitive needs: No Hearing needs: No Vision needs: No Review of Systems Const All systems reviewed & are unremarkable except as noted in HPI and below Physical Exam Const General: cooperative, healthy appearing and no acute distress Resp Effort & Inspection: normal respiratory effort and able to speak in complete sentences Extrem Other: Right/Left elbow: Mild edema over the lateral epicondyle bilaterally. No tenderness to palpation over the olecranon. Tenderness to bilateral lateral epicondyles. Reproducible pain with resisted wrist extension at the lateral epicondyles. NVI. Psych Appearance: grossly normal Mental Status: mental status grossly normal Attitude: cooperative Office Procedures AMB Joint Injection/Aspiration Joint Injection/Aspiration Primary Site: left tennis elbow Secondary Site: right tennis elbow Prep: site was prepped using aseptic technique, ethochloride spray was applied and injection warnings given Injected: 40 mg of, with 1 mL of, 1% plain lidocaine and decadron Approach Used: other (lateral epicondyle ) Procedure: The patient tolerated the procedure well, but had some pain with the injection and there was some relief with the local anesthesia Coding 20832 - Epicondyle Procedure code (CPT) selection complete Assessment & Plan Assessment & Plan (1) Bilateral tennis elbow: Code(s): M77.11 - Lateral epicondylitis, right elbow; M77.12 - Lateral epicondylitis, left elbow Category: Medical Plan The patient was offered a cortisone injection in bilateral elbow lateral epicondyles. The patient was explained the risks, benefits, and alternatives to receiving this injection. After receiving consent for the injection, the patient had the procedure done while in the office today. The patient tolerated the pro cedure well with no complications. I recommended that the patient also wear tennis elbow braces in which he states that he has at home and has been using. I did inform the patient that I would prefer he wait 6 months in order to receive a 2nd injection if needed. X-rays obtained on 03/12/2025 bilateral elbows reveal no acute fracture or dislocation. Follow-up will be PRN, or sooner if needed Coding Level of Care Code New Pt Level 3 (14251) Diagnoses Bilateral tennis elbow M77.11; M77.12 CPT Codes Coding - Joint 2: 29317 - Epicondyle ([id number])
== END 2025-05-12 15:49 | disposition home or self-care (01) ==
LOC: HO.HOS 14:43
PROVIDERS: PCP Internal Medicine; Visit Provider Physician Assistant
DX: M77.11 Lateral epicondylitis, right elbow (principal); M77.12 Lateral epicondylitis, left elbow
CPT/HCPCS: 20551; 99213

== ENCOUNTER → 2025-05-12 14:42 | Outpatient (BNVA) | payer OTHER, SELFPAY | PROVIDERS: PCP Internal Medicine; Visit Provider Physician Assistant | DX: M77.11 Lateral epicondylitis, right elbow (principal); M77.12 Lateral epicondylitis, left elbow | CPT/HCPCS: 20551; 99212; J1100; J2003 ==

== ENCOUNTER 2025-06-10 07:53 | Outpatient (REF) | payer OTHER, SELFPAY ==
[2025-06-10 09:28] LABS: Alanine Aminotransferase 23 U/L (0-40); Albumin Level 4.6 g/dL (3.5-5.0); Alkaline Phosphatase 61 U/L (39-117); Anion Gap 11 (12-20); Aspartate Amino Transferase 32 U/L (5-37); Blood Urea Nitrogen 12 mg/dL (9-16); Calcium 9.6 mg/dL (8.4-10.2); Carbon Dioxide 30 mmol/L (22-29); Chloride 103 mmol/L (96-108); Cholesterol 203 mg/dL (<200); Estimated Glomerular Filt Rate > 60; HDL Cholesterol 40 mg/dL (>40); Potassium 4.0 mmol/L (3.3-5.1); Sodium 140 mmol/L (135-145); Total Protein 7.8 g/dL (6.5-8.0); Triglycerides 100 mg/dL (<150)
== END 2025-06-10 07:54 | disposition home or self-care (01) ==
LOC: HO.LAB 07:53
PROVIDERS: PCP Internal Medicine; Visit Provider Internal Medicine
DX: E55.9 Vitamin D deficiency, unspecified (principal); E78.5 Hyperlipidemia, unspecified; R80.9 Proteinuria, unspecified; E11.9 Type 2 diabetes mellitus without complications
CPT/HCPCS: 36415; 80053; 80061; 82043; 82306; 82570

== ENCOUNTER 2025-06-14 18:15 | Emergency (ER) | payer OTHER, SELFPAY ==
--- NOTE | ~2025-06-14 | XR_ITS ---
CLINICAL HISTORY: work injury anterior mohan Radiographs of the left tibia/fibula, 2 views Comparison: None available Findings: No fracture or dislocation. Mild degenerative change. Soft tissue swelling. Impression: No fracture. This document has been electronically signed by: Cristina Escoto MD on 06/14/2025 19:02:30
[2025-06-14 18:31] VITALS: BP 147/78; PULSE 91; RESP 20; TEMP 36.7; O2SAT 95; BMI 38.0
--- NOTE | 2025-06-14 18:32 | ED.GENADULT ---
HPI - General Adult General Chief complaint: Extremity Injury, Lower Stated complaint: Knee Leg Pain Time Seen by Provider: 06/14/25 19:01 Source: patient, RN notes reviewed, old records reviewed and provider service representative Mode of arrival: ambulatory Limitations: language barrier History of Present Illness ED Provider: Merrill HPI narrative: Patient is a 50year old Sammarinese speaking male pmhx DM, depression/anxiety presenting to the ED with complaint of work related injury to left lower leg. Was picking up a box and slipped. Unsure last Tdap. Denies head strike at time of fall. Has abrasion to anterior mohan. MD complaint: leg injury Related Data Home Medications ?Medication ?Instructions ?Recorded ?Confirmed blood sugar diagnostic #10 ea 05/22/20 03/24/25 lorazepam 1 mg tablet 1 mg PO TID 05/22/20 03/24/25 paroxetine HCl 20 mg tablet 20 mg PO QAM 05/22/20 03/24/25 quetiapine 100 mg tablet 100 mg PO BEDTIME 05/22/20 03/24/25 Previous Rx's ?Medication ?Instructions ?Recorded alcohol swabs 1 pad topical .3 times a day 90 06/28/20 days #300 ea cholecalciferol (vitamin D3) 50 50 mcg PO DAILY #90 caps 03/04/24 mcg (2,000 unit) capsule (Vitamin D3) cyanocobalamin (vitamin B-12) 100 100 mcg PO DAILY 90 days #90 tabs 03/04/24 mcg tablet blood sugar diagnostic (FreeStyle #300 ea 05/20/24 Lite Strips) cyclobenzaprine 10 mg tablet 10 mg PO BEDTIME #14 tabs 01/06/25 diclofenac potassium 50 mg tablet 50 mg PO BID 7 days #14 tabs 01/06/25 acetaminophen 500 mg tablet 500 mg PO Q6H PRN pain #30 tabs 03/12/25 (Tylenol Extra Strength) ibuprofen 600 mg tablet 600 mg PO Q6H PRN pain #30 tabs 03/12/25 blood-glucose meter (FreeStyle #1 ea 03/22/25 Lite Meter kit) dulaglutide 0.75 mg/0.5 mL 0.75 mg (0.5 mL) subcut QWEEK 90 03/22/25 subcutaneous pen injector days #6.5 mL (Trulicity) lancets 28 gauge #100 ea 03/25/25 atorvastatin 40 mg tablet 40 mg PO BEDTIME 90 days #90 tabs 04/03/25 metformin 500 mg tablet,extended 500 mg PO BID #180 tabs 05/29/25 release 24 hr cephalexin 500 mg tablet 500 mg PO QID 7 days #28 tabs 06/14/25 Allergies Allergy/AdvReac Type Severity Reaction Status Date / Time No Known Allergies (No Known Allergy Verified 06/14/25 18:34 Allergies*) Review of Systems Review of Systems: As per hpi Yes all other systems are reviewed and are negative Constitutional: Constitutional: Reports as per HPI [facility] Past Medical History Medical History Right elbow tendonitis Physical exam Obesity (BMI 30-39.9) Hypovitaminosis D B12 deficiency Depression with anxiety Pure hypercholesterolemia Diabetes mellitus Surgical History (Reviewed 04/26/25 @ 15:28 by María Elena Colbert [facility]) No pertinent past surgical history Family History Family History Father Alzheimers disease Mental health disorder Mother Diabetes Social History Social History (Updated 05/12/25 @ 15:18 by Moira Varghese) Housing: Apartment Alcohol intake: current Alcohol intake frequency: holidays/special occasions only Alcohol type: beer Patient Tobacco Use Status: Never used Tobacco e-Cigarette/Vaping Use: Never Used Second Hand Smoke Exposure: No Advance Directives: No Advance Directives Information Provided: Yes Do you have a plan to hurt others: No Plan service: No Current occupational status: employed Current occupation: [employer], 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 Current occupational exposures/hazards: No Cognitive needs: No Hearing needs: No Vision needs: No Physical Exam ED Vital Signs: Vital Signs - 24 hr 06/14/25 18:31 Temperature 98.0 F Pulse Rate 91 Respiratory Rate 20 Blood Pressure 147/78 H Pulse Oximetry 95 Oxygen Delivery Method Room Air BMI result Body Mass Index 38.0 Vital signs have been reviewed and appear to be correct. Blood pressure normal. Heart rate normal. Respiratory rate normal. Temperature normal. Oxygen saturation normal. Const General: cooperative, healthy appearing and no acute distress Orientation/consciousness: oriented to person, oriented to place, oriented to time and patient oriented x3 Limitations: no limitations HENMT Head: Yes normocephalic and Yes atraumatic Ears: external ears normal General nose exam: Normal external nose present Face and sinus: Yes face symmetric Mouth: oropharynx normal and moist mucous membranes Throat: Yes uvula midline Eyes Pupils: Equal, round and reactive pupils present Neck Neck: Yes normal visual inspection and Yes supple Resp Effort & Inspection: normal respiratory effort and able to speak in complete sentences Auscultation: clear to auscultation bilaterally Cardio Rate: regular rate Rhythm: regular rhythm Heart sounds: S1 normal heart sound present and S2 normal heart sound present Skin General skin exam: elasticity normal and turgor normal Neuro General: oriented to person, oriented to place, oriented to time, patient oriented x3, moves all extremities, no focal motor deficits and CN's II-XI intact bilaterally Cranial nerves: Yes Equal, round and reactive pupils present Cognition (Neuro): normal cognition Extrem General: Yes full ROM, Yes no pedal edema and Yes no calf tenderness Left lower extremity: lower leg Details: tenderness Location: other (mid anterior leg) and localized swelling Location: of the mid lower leg (anterior); no ecchymosis and no unusual warmth Upper/lower leg/hip images:  1. abrasion, tenderness Psych Mental Status: mental status grossly normal Affect: normal affect Thought process: Normal thought process present Course Course Course Narrative: This is a rapid medical exam performed by Keena Momin NP: Additional HPI, ROS, PE not included below will be deferred to primary provider. Patient is a 50y/o Sammarinese speaking male pmhx DM, depression/anxiety presenting to the ED with complaint of work related injury to left lower leg. Was picking up a box and slipped. Unsure last Tdap. Denies head strike at time of fall. Plan: x-ray, Tdap Medications Administered Discontinued Medications Generic Name Dose Route Start Last Admin Trade Name Freq PRN Reason Stop Dose Admin Diphtheria/Tetanus/Acell Pertussis 0.5 ml 06/14/25 18:42 06/14/25 19:10 Diphth,Pertus(Acell),Tet Adult 0.5 Ml Syringe IM 06/14/25 18:43 0.5 ml .ONCE ONE Administration Medical Decision Making Medical Decision Making MDM Narrative: Patient is a 50y/o Sammarinese speaking male pmhx DM, depression/anxiety presenting to the ED with complaint of work related injury to left lower leg. On exam patient is awake, A+Ox3, VS WNL, afebrile, normal neurological exam without focal deficits, physical exam findings as above. Given reported symptoms and physical exam findings, initial differential includes but is not limited to left lower leg abrasion, contusion, fracture. Tdap updated. X-ray left lower leg notable for no acute fracture. My interpretation is in agreement with the radiologist's interpretation. Will cover with prophylactic antibiotics given DM. Advised ice, elevation. Return precautions discussed. Follow up with PCP as needed. Patient verbalized understanding of and agreement with plan. In-person health insurance assessor was utilized for all interactions, assessments, and discussions. Differential Diagnosis Differential Diagnoses: The differential diagnosis associated with the presentation includes as per [facility] Admission/Observation Consideration of admission/observation: Escalation of care including admission/observation considered Patient would have been admitted to the hospital and transferred to appropriate facility had their clinical presentation warranted hospital admission. Independent Interpretation I performed an independent interpretation of an: Plain X-Ray Interpretation: No acute fracture on x-ray of left lower leg. Radiology Impression Discussion of test interpretation with radiology: I have reviewed the radiologist's reading. Radiologist Impression: Radiographs of the left tibia/fibula, 2 views Comparison: None available Findings: No fracture or dislocation. Mild degenerative change. Soft tissue swelling. Impression: No fracture. External Record Review External record reviewed: Inpatient record, Office record and Outpatient record Prescription Management I considered prescription management with: Antibiotic Chronic Conditions Patient?s care impacted by: Diabetes Discharge Plan Discharge Clinical Impression: Abrasion of left lower leg Qualifiers: Encounter type: initial encounter Qualified Code(s): S80.812A - Abrasion, left lower leg, initial encounter Patient Disposition: Home, Self-Care Instructions: Cephalexin (By mouth), Diphtheria/Pertussis/Tetanus Vaccine (By injection), Abrasion (ED) Additional Instructions: You were evaluated in the emergency department for a work related injury to your lower leg. Your x-ray did not show evidence of fracture. Your Tdap (tetanus vaccine) was updated at today's visit. You have an abrasion which will heal on it's own. You are being prescribed a course of antibiotics to prevent infection due to your diabetes which puts you at higher risk for infection. Complete the full course as prescribed. Keep your leg elevated while at rest, and you can apply ice to the area for 10-15 minutes at a time several times daily, using caution not to apply ice directly to skin. You can take 650mg of Tylenol or 600mg ibuprofen every 6 hours as needed for pain. Prescriptions: New cephalexin 500 mg tablet 500 mg PO QID 7 Days Qty: 28 0RF No Action (DME) FreeStyle Lite Strips Strip See Rx Instructions .ROUTE .MEDSUPPLY Qty: 300 2RF Rx Instructions: 3 times a day Trulicity 0.75 mg/0.5 mL pen injector 0.75 mg subcut QWEEK 90 Days Qty: 6.5 1RF (DME) blood-glucose meter [FreeStyle Lite Meter] Kit See Rx Instructions .Route Qty: 1 0RF Rx Instructions: As directed atorvastatin 40 mg tablet 40 mg PO BEDTIME 90 Days Qty: 90 1RF Rx Instructions: Dose increased to 40 mg metformin 500 mg tablet extended release 24 hr 500 mg PO BID Qty: 180 1RF ibuprofen 600 mg tablet 600 mg PO Q6H PRN (Reason: pain) Qty: 30 0RF acetaminophen [Tylenol Extra Strength] 500 mg tablet 500 mg PO Q6H PRN (Reason: pain) Qty: 30 0RF paroxetine HCl 20 mg tablet 20 mg PO QAM quetiapine 100 mg tablet 100 mg PO BEDTIME lorazepam 1 mg tablet 1 mg PO TID (DME) FreeStyle Lite Strips Strip See Rx Instructions .ROUTE .MEDSUPPLY Qty: 10 Rx Instructions: As directed cholecalciferol (vitamin D3) [Vitamin D3] 50 mcg (2,000 unit) capsule 50 mcg PO DAILY Qty: 90 1RF cyanocobalamin (vitamin B-12) 100 mcg tablet 100 mcg PO DAILY 90 Days Qty: 90 1RF alcohol swabs Pads, Medicated 1 pad topical .3 times a day 90 Days Qty: 300 2RF cyclobenzaprine 10 mg tablet 10 mg PO BEDTIME Qty: 14 0RF diclofenac potassium 50 mg tablet 50 mg PO BID 7 Days Qty: 14 0RF (DME) lancets 28 gauge misc See Rx Instructions topical TID Qty: 100 1RF Rx Instructions: once a day Stand Alone Forms: Work/School Release Print Language: Sammarinese
[2025-06-14] MEDS: Diphth,Pertus(ACell),Tet Adult 0.5 ML SYRINGE IM (19:10)
[2025-06-14 19:27] VITALS: BP 147/78; PULSE 91; RESP 20; TEMP 36.7; O2SAT 95
== END 2025-06-14 19:27 | disposition home or self-care (01) ==
PROVIDERS: Emergency Provider Emergency Medicine; PCP Internal Medicine
DX: S80.812A Abrasion, left lower leg, initial encounter (principal); W19.XXXA Unspecified fall, initial encounter; Y93.9 Activity, unspecified; Y92.9 Unspecified place or not applicable; Y99.0 Civilian activity done for income or pay; Z23 Encounter for immunization; E11.9 Type 2 diabetes mellitus without complications
CPT/HCPCS: 73590; 90471; 90715; 99282; 99284

== ENCOUNTER → 2025-06-14 18:33 | Outpatient (BNV) | payer OTHER, SELFPAY | PROVIDERS: Emergency Provider Emergency Medicine; PCP Internal Medicine; Visit Provider Radiology Diagnostic Radiology | DX: S89.92XA Unspecified injury of left lower leg, initial encounter (principal) | CPT/HCPCS: 73590 ==

== ENCOUNTER 2025-06-20 07:42 | Day surgery (SDC) | payer OTHER, SELFPAY ==
[2025-06-20 07:58] VITALS: BP 124/81; PULSE 116; RESP 20; TEMP 36.4; O2SAT 96; BMI 34.2
--- NOTE | 2025-06-20 08:36 | MHC.SHP ---
Pre-Procedural Eval Section A - 24 Hr Update-Section A only Date of Service: 06/20/25 The patient is an INPATIENT: No Changes since office visit: No Cold of Flu in the past 2 weeks, No New Medical Problems, No Changes in Medication and No Patient answered all questions The patient has been examined within 24 hours of the surgical procedure. The History & Physical has been completed within 30 days and I have reviewed it.: Yes Section B - Complete if H&P > 30 days Chief Complaint: Trigger right middle finger Allergies: Allergies Allergy/AdvReac Type Severity Reaction Status Date / Time No Known Allergies (No Known Allergy Verified 06/14/25 18:34 Allergies*) Plan I have reviewed the history and physical and performed a pertinent physical examination on my patient. No changes have occurred unless specified. Time Spent With Patient Time: Total time managing care of this patient today ____ minutes.
--- NOTE | 2025-06-20 08:37 | W.PM.OPN ---
Operative Note Operative Note Date of Service: 06/20/25 Narrative: Operative Note Preop diagnosis: 1. Right middle finger Trigger finger Postop diagnosis: Same Procedure: 1. Right middle finger A1 mayda release Surgeon: Celi Frazier MD Digital Forensics Investigator: None Anesthesia: local block using 1% lidocaine with epinephrine Findings: No locking or catching after A1 mayda release EBL: Less than 5 mL Tourniquet time: None Specimens: None Complications: None Disposition: Brought to recovery room in stable condition Plan: Follow-up for 10-14 days for wound check and suture removal Indications: The patient is 50 years old, with a right middle finger trigger finger that has been unresponsive to nonoperative management. The risks and benefits of operative treatment including but not limited to risk of damage to blood vessels, nerves, tendons, infection, persistent pain, persistent symptoms, recurrence or possible need for additional surgery were discussed with the patient and the patient wishes to proceed with surgery. Procedure: Once consent was obtained a local block was performed in the preop area using a combination of 1% lidocaine with epinephrine. The patient was then brought back to the operating suite and placed on the operative table in supine position. The right upper extremity was prepped and draped in a standard surgical fashion. Once assured that we had a good block, a 1.5 cm oblique incision was made centered over the A1 mayda of the right middle finger . The incision was made through the skin to the subcutaneous tissues using a #15 blade. Careful dissection was made down to the level of the A1 mayda using tenotomy scissors, with care being taken to protect the nearby neurovascular structures. A longitudinal incision was made in the A1 mayda 1st using a #15 blade, then using tenotomy scissors under direct visualization. The A1 mayda was noted to be thickened. Following our A1 mayda release, we no longer saw any locking or catching of the digit with flexion and extension. Once satisfied with our A1 mayda release the wound was copiously irrigated with normal saline and hemostasis was obtained with a brief period of local pressure. The skin edges were reapproximated with some 5.0 nylon suture material and a sterile dressing was applied. The patient appears to have tolerated the procedure well and with no complications. All digits were well vascularized at the conclusion of the case.
[2025-06-20 09:42] VITALS: BP 114/82; PULSE 88; RESP 16; TEMP 36.3; O2SAT 98
== END 2025-06-20 09:52 | disposition home or self-care (01) ==
PROVIDERS: PCP Internal Medicine; Visit Provider Orthopaedic Surgery
PROC: (CPT 26055; principal; 2025-06-20 08:50)
DX: M65.331 Trigger finger, right middle finger (principal); M77.12 Lateral epicondylitis, left elbow; M77.11 Lateral epicondylitis, right elbow; E78.00 Pure hypercholesterolemia, unspecified; E11.9 Type 2 diabetes mellitus without complications; F41.8 Other specified anxiety disorders; E55.9 Vitamin D deficiency, unspecified; E53.8 Deficiency of other specified B group vitamins; E66.9 Obesity, unspecified; Z68.33 Body mass index [BMI] 33.0-33.9, adult
CPT/HCPCS: 26055; J0165; J2003

== ENCOUNTER → 2025-06-20 07:42 | Outpatient (BNV) | payer OTHER, SELFPAY | PROVIDERS: PCP Internal Medicine; Visit Provider Orthopaedic Surgery | DX: M65.331 Trigger finger, right middle finger (principal) | CPT/HCPCS: 26055 ==

== ENCOUNTER 2025-07-05 13:42 | Outpatient (AMB) | payer OTHER, SELFPAY ==
--- NOTE | 2025-07-05 13:45 | MHC.OFFVIS ---
Vital Signs 07/05/25 13:57 Height 5 ft 11 in Weight 244 lb BMI 34.0 Intake Visit Reasons: PO RT MF trigger 06/20/25 AR Intake Note: Waqar is a 50 year old 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 male who presents today for a Post-Operative Visit status post Right Middle Finger Trigger Release performed by Dr. Frazier on 06/20/25. Patient complains of right hand swelling and stiffness. He denies any numbness or tingling. Patient states he cannot tell if his finger is locking due to the swelling. 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 Sutures removed and steri strips applied. Allergies No Known Allergies (No Known Allergies*) Allergy (Verified 07/05/25 14:15) HPI HPI PO RT MF trigger 06/20/25 AR: Details: Waqar is a 50 year old 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 male who presents today for a Post-Operative Visit status post Right Middle Finger Trigger Release performed by Dr. Frazier on 06/20/25. Patient complains of right hand swelling and stiffness. He denies any numbness or tingling. Patient states he cannot tell if his finger is locking due to the swelling, but he has not appreciated any finger locking. 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 Sutures removed and steri strips applied. [facility] Medical History Right elbow tendonitis Physical exam Obesity (BMI 30-39.9) Hypovitaminosis D B12 deficiency Depression with anxiety Pure hypercholesterolemia Diabetes mellitus Surgical History (Reviewed 04/26/25 @ 15:28 by María Elena Colbert [facility]) No pertinent past surgical history Family History Father Alzheimers disease Mental health disorder Mother Diabetes Social History (Updated 05/12/25 @ 15:18 by Moira Varghese) Housing: Apartment Alcohol intake: current Alcohol intake frequency: holidays/special occasions only Alcohol type: beer Patient Tobacco Use Status: Never used Tobacco e-Cigarette/Vaping Use: Never Used Second Hand Smoke Exposure: No service: No Current occupational status: employed 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 Neuro: Normal sensation of the tips of all digits of the right hand at this time Vascular: Cap refill brisk Pain: Some tenderness to palpation about the incision site over A1 mayda of right middle finger Discomfort with range of motion of right middle finger ROM: With encouragement, patient is able to make a closed fist and extend all digits of the right hand fully Skin: Well approximated and well healing incision site noted over the A1 mayda of the right middle finger No lacerations or abrasions. General: No ecchymosis, erythema, or evidence of infection. Psych: Appears grossly normal Affect normal Attitude cooperative Assessment & Plan Assessment & Plan (1) Trigger finger, right middle finger: Code(s): M65.331 - Trigger finger, right middle finger Category: Medical Plan 1. Status post right middle finger trigger release DOS 06/20/2025 With good symptomatic resolution postoperatively Patient appears to be recovering well postoperatively Patient is educated about the typical recovery course No under water times one-week, 2 lb weight limit x2 weeks Patient appears to be recovering very well, and requires no further acute follow-up with us postoperatively Patient is educated and worrisome signs and symptoms, and should call us if they experience any of these, including but not limited to redness, swelling, increased pain, and discharge Patient understands this and is amenable to this plan Follow-up in 3-4 weeks for [id number] check, sooner with any acute concerns Coding Level of Care Code Global (33988) Diagnoses Trigger finger, right middle finger M65.331
[2025-07-05 13:57] VITALS: BMI 34.0
== END 2025-07-05 14:14 | disposition home or self-care (01) ==
LOC: HO.HOS 13:43
PROVIDERS: PCP Internal Medicine
DX: M65.331 Trigger finger, right middle finger (principal)
CPT/HCPCS: 99024

== ENCOUNTER → 2025-07-05 13:42 | Outpatient (BNVA) | payer OTHER, SELFPAY | PROVIDERS: PCP Internal Medicine | DX: M65.331 Trigger finger, right middle finger (principal) | CPT/HCPCS: 99212 ==

== ENCOUNTER 2025-07-07 16:12 | Outpatient (AMB) | payer OTHER, SELFPAY ==
--- NOTE | 2025-07-07 16:17 | MHC.PC.OV ---
Vital Signs 07/07/25 16:23 Height 5 ft 11 in Weight 245 lb BMI 34.2 BP 110/80 Blood Pressure Location Lt brachial Position Sitting Pulse 76 Pulse Source Pulse Oximeter Temp 97.1 F Temp Source Temporal Artery Scan Pulse Oximetry (%) 99 Oxygen Delivery Method Room Air Intake Visit Reasons: dm Clerical Assigner Required: No Accompanied by: Self / Same As Patient Allergies No Known Allergies (No Known Allergies*) Allergy (Verified 07/07/25 16:35) Medication List - Last Reconciled 07/07/25 by Louise Ledesma MD acetaminophen (Tylenol Extra Strength) 500 mg PO Q6H PRN alcohol swabs 1 pad topical .3 times a day 90 days atorvastatin 40 mg PO BEDTIME 90 days blood sugar diagnostic As directed blood sugar diagnostic (FreeStyle Lite Strips) 3 times a day blood-glucose meter (FreeStyle Lite Meter kit) As directed cephalexin 500 mg PO QID 7 days cholecalciferol (vitamin D3) (Vitamin D3) 50 mcg PO DAILY cyanocobalamin (vitamin B-12) 100 mcg PO DAILY 90 days cyclobenzaprine 10 mg PO BEDTIME diclofenac potassium 50 mg PO BID 7 days dulaglutide (Trulicity) 0.75 mg (0.5 mL) subcut QWEEK 90 days hydrocodone-acetaminophen 5-325 mg 1 tab PO Q4-6H PRN ibuprofen 600 mg PO Q6H PRN lancets once a day lorazepam 1 mg PO TID metformin ER 500 mg PO BID paroxetine HCl 20 mg PO QAM quetiapine 100 mg PO BEDTIME Tobacco use date assessed: 07/07/25 Dental Screening Dental Screen Date: 07/07/25 Did you have a dental visit in the last 12 months?: Yes Did you have a dental problem in the last 6 months where you did not have access to dental care?: No Was dental information given to patient?: Patient has dentist HPI HPI Comments History of Present Illness Details The patient is a 50 year old male presenting for a follow-up visit for diabetes management. He is currently treated with metformin and weekly Trulicity. A1c of 6.4% today which is good glycemic control. The patient has a history of hyperlipidemia and is prescribed atorvastatin 40 mg, though he reports non-adherence to this medication. LDL not on goal. He has a history of depression with anxiety, for which he sees a psychiatrist and takes paroxetine and Seroquel. The patient reports feeling discouraged and aggressive, which he attributes to his job. He also uses lorazepam and Flexeril. Past medical history is also notable for vitamin D and B12 supplementation, though his vitamin D level is now normal. He had a work-related leg injury last month. Regarding health maintenance, a referral for a colonoscopy was made in March, but he did not attend the appointment. The patient reports no known drug allergies. He drinks beer on special occasions and has never smoked. [facility] Medical History (Updated 07/07/25 @ 16:44 by Louise Ledesma MD) Right elbow tendonitis Physical exam Obesity (BMI 30-39.9) Hypovitaminosis D B12 deficiency Depression with anxiety Pure hypercholesterolemia Diabetes mellitus Surgical History No pertinent past surgical history Family History Father Alzheimers disease Mental health disorder Mother Diabetes Social History Housing: Apartment Alcohol intake: current Alcohol intake frequency: holidays/special occasions only Alcohol type: beer Patient Tobacco Use Status: Never used Tobacco e-Cigarette/Vaping Use: Never Used Second Hand Smoke Exposure: No service: No Current occupational status: employed Current occupation: [employer] - [employer], 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 Current occupational exposures/hazards: No Cognitive needs: No Hearing needs: No Vision needs: No Questionnaire PHQ-9 Over the last 2 weeks, how often have you been bothered by any of the following problems? 1. Little interest or pleasure in doing things: several days 2. Feeling down, depressed, or hopeless: several days 3. Trouble falling or staying asleep, or sleeping too much: nearly every day 4. Feeling tired or having little energy: not at all 5. Poor appetite or overeating: several days 6. Feeling bad about yourself - or that you are a failure or have let yourself or your family down: several days 7. Trouble concentrating on things, such as reading the newspaper or watching television: several days 8. Moving or speaking so slowly that other people could have noticed. Or the opposite - being so fidgety or restless that you have been moving around a lot more than usual: not at all 9. Thoughts that you would be better off or of hurting yourself in some way: not at all Total score: 8 Depression Screening Interpretation: Positive Depression Screening Follow-up: Existing condition, In treatment, Community Mental Health Worker F/U and Follow-up Visit Requested Depression Screening Done: Yes 39124 - PHQ-9 Billing: Yes Source: Developed by Drs. Shashank Doe, Yady Paz, Sandeep Cartwright and colleagues, with an educational mary from [employer]. Thrive Questionnaire Date Thrive assessed: 07/07/25 I am a: Patient What is your living situation today?: I have a steady place to live Within the past 12 months, did the food you bought not last and you didn't have the money to get more?: I choose not to answer this question Within the past 12 months, did you worry whether your food would run out before you got money to buy more?: I choose not to answer this question Do you have trouble paying for medicines?: I choose not to answer this question Do you have trouble getting transportation to medical appointments?: I choose not to answer this question Do you have trouble paying your heating and electricity bill?: I choose not to answer this question Do you have trouble taking care of your child, family member or friend?: I choose not to answer this question Do you have trouble with day-to-day activities such as bathing, preparing meals, shopping, managing finances, etc.?: I choose not to answer this question Are you currently unemployed and looking for a job?: I choose not to answer this question Are you interested in more education?: I choose not to answer this question Please select the resources that you would like help with: None Currently or been in a relationship where the following occur: I choose not to answer THRIVE Score: 0 AUDIT C Alcohol Use Questionnaire (AUDIT-C) 1. How often do you have a drink containing alcohol?: Monthly or less 2. How many drinks containing alcohol do you have on a typical day when you are drinking?: 1 or 2 3. How often do you have six or more drinks on one occasion?: Less than monthly Total Score: 2 Score Reviewed/Action Taken: No NAEL-7 AMB Questionnaire NAEL-7 Date NAEL - 7 assessed: 07/07/25 Feeling nervous, anxious, or on edge: 3 = Nearly every day Not being able to stop or control worryin = More than half the days Worrying too much about different things: 2 = More than half the days Trouble relaxin = More than half the days Being so restless that it is hard to sit still: 2 = More than half the days Becoming easily annoyed or irritable: 2 = More than half the days Feeling afraid as if something awful might happen: 2 = More than half the days Total NAEL-7 score (0-4 normal; 5-9 mild; 10-14 moderate; 15-21 severe): 15 Source: Developed by Drs. Shashank Doe, Yady Paz, Sandeep Cartwright and colleagues, with an educational mary from [employer]. NAEL-7 Assessment Billing NAEL-7 Assessment Tool: NAEL-7 Assessment 85848 Review of Systems Const All systems reviewed & are unremarkable except as noted in HPI and below Card Denies chest pain at rest, Denies chest pain with activity, Denies edema, Denies irregular heart rhythm, Denies claudication, Denies dyspnea, Denies dyspnea on exertion, Denies orthopnea, Denies paroxysmal nocturnal dyspnea and Denies slow heart rate Resp Denies cough, Denies dyspnea and Denies dyspnea on exertion Physical exam (Primary Care) Vital Signs: Last Vital Signs Temp 97.1 F 07/07/25 16:23 Pulse 76 07/07/25 16:23 BP 110/80 07/07/25 16:23 Pulse Ox 99 07/07/25 16:23 Oxygen Delivery Method Room Air 07/07/25 16:23 BMI result Body Mass Index 34.2 BMI Assessment/Plan discussion: High BMI High, discussed plan: lifestyle, weight reduction, dietary and physical activity Tobacco/Smoking Status: Tobacco use Status Tobacco use date assessed 07/07/25 07/07/25 16:19 Patient Tobacco Use Status Never used Tobacco 07/07/25 16:17 Tobacco use type 03/28/25 14:07 e-Cigarette/Vaping Use Never Used 07/07/25 16:17 PHQ-9: PHQ-9 Score PHQ-9: Total score 8 07/07/25 16:33 Depression Screening Interpretation: Positive Depression Screening Follow-up: Existing condition, In treatment, Community Mental Health Worker F/U and Follow-up Visit Requested Thrive Assessment: Date of Thrive Assessment Date Thrive assessed 07/07/25 07/07/25 16:19 Currently or been in a relationship where the following occur: I choose not to answer Resp Effort & Inspection: normal respiratory effort Auscultation: clear to auscultation bilaterally Cardio Jugular venous distension: no JVD Rate: regular rate Rhythm: regular rhythm Heart sounds: S1 normal heart sound present and S2 normal heart sound present Extrem General: Yes full ROM Results AMB Hemoglobin A1c AMB Hemoglobin A1c 6.4 % Last Edit by Corrina Abdul CMA on 07/07/25 16:35 Coding Level of Care Code Complex visit Add On G2211 Diagnoses Type 2 diabetes mellitus without complication, without long-term current use of insulin E11.9 Diabetes mellitus type: type 2 Diabetes mellitus residential insulin use: without terminal block assembler use Diabetes mellitus complication status: without complication Pure hypercholesterolemia E78.00 Moderate recurrent major depression F33.1 NAEL (generalized anxiety disorder) F41.1 Additional Codes NAEL-7 Assessment Billing - NAEL-7 Assessment Tool: NAEL-7 Assessment 35113 ([id number]) PHQ-9 - 72885 - PHQ-9 Billing: Yes ([id number]) Time Spent (min) 23 Assessment & Plan Assessment & Plan (1) Diabetes mellitus: Code(s): E11.9 - Type 2 diabetes mellitus without complications Category: Medical Qualifiers: Diabetes mellitus type: type 2 Diabetes mellitus terminal block assembler insulin use: without residential use Diabetes mellitus complication status: without complication Qualified Code(s): E11.9 - Type 2 diabetes mellitus without complications (2) Pure hypercholesterolemia: Code(s): E78.00 - Pure hypercholesterolemia, unspecified Category: Medical (3) Moderate recurrent major depression: Code(s): F33.1 - Major depressive disorder, recurrent, moderate Category: Medical (4) NAEL (generalized anxiety disorder): Code(s): F41.1 - Generalized anxiety disorder Category: Medical Plan Plan 1. Type 2 Diabetes Mellitus The patient's glycemic control is good, with a recent hemoglobin A1c of 6.4% and a blood glucose of 113 mg/dL. His renal function is normal and urinalysis shows no proteinuria. He will continue his current regimen of metformin and weekly Trulicity. 2. Hyperlipidemia The patient's LDL cholesterol is elevated at 143 mg/dL, well above the target of less than 70 mg/dL. He admitted to non-adherence with his atorvastatin 40 mg prescription. He was counseled on the importance of medication adherence, and an increase in his atorvastatin dose was considered to better control his cholesterol. 3. Depression And Anxiety The patient's recent screening scores were a PHQ-9 of 8 and a NAEL-7 of 15, indicating mild depression and severe anxiety. He continues to be managed by his psychiatrist for these conditions. He will continue his current psychiatric medications, including paroxetine and Seroquel. 4. Health Maintenance The patient is due for a colonoscopy for colorectal cancer screening. A previous referral in March was not completed. A new referral will be sent, and the patient was encouraged to complete the screening. Orders: Orders AMB Hemoglobin A1c Today Z13.9 - Encounter for screening, unspecified Vitamin D 25-OH Total 4 Months E55.9 - Vitamin D deficiency, unspecified Lipid Panel 4 Months E78.5 - Hyperlipidemia, unspecified Microalbumin, Random (w Creat) 4 Months R80.9 - Proteinuria, unspecified Comprehensive [place]. Panel Fast 4 Months E11.9 - Type 2 diabetes mellitus without complications Referrals Gastroenterology Referral Z12.11 - Encounter for screening for malignant neoplasm of colon
[2025-07-07 16:23] VITALS: BP 110/80; PULSE 76; TEMP 36.2; O2SAT 99; BMI 34.2
== END 2025-07-07 16:49 | disposition home or self-care (01) ==
LOC: HO.HMCH 16:13
PROVIDERS: PCP Internal Medicine; Visit Provider Internal Medicine
DX: E11.9 Type 2 diabetes mellitus without complications (principal); E78.00 Pure hypercholesterolemia, unspecified; F33.1 Major depressive disorder, recurrent, moderate; F41.1 Generalized anxiety disorder; Z13.9 Encounter for screening, unspecified

== ENCOUNTER → 2025-07-07 16:12 | Outpatient (BNVA) | payer OTHER, SELFPAY | PROVIDERS: PCP Internal Medicine; Visit Provider Internal Medicine | DX: E11.9 Type 2 diabetes mellitus without complications (principal); E78.00 Pure hypercholesterolemia, unspecified; F33.1 Major depressive disorder, recurrent, moderate; F41.1 Generalized anxiety disorder | CPT/HCPCS: 83036; 96127; 99212 ==